=== PATIENT | male | born 2000 | race Caucasian/White ===

== ENCOUNTER 2021-12-10 09:40 | Emergency (ER) | payer BC, SELFPAY ==
[2021-12-10 10:16] VITALS: BP 141/98; PULSE 104; RESP 22; TEMP 36.4; O2SAT 97; BMI 57.8
[2021-12-10 10:30] VITALS: BP 141/87; PULSE 87; RESP 18; O2SAT 96
--- NOTE | 2021-12-10 10:36 | CRLHL7_ITS ---
For Patients: As a result of the Century Cures Act, medical imaging exams and procedure reports are released immediately into your electronic medical record. You may view this report before your referring provider. If you have questions, please contact your health care provider. indication: Right-sided chest pain and shortness of breath Technique: Volumetric multidetector CT images of the chest were obtained after the administration of IV contrast. 95 cc Isovue 370 low osmolar intravenous contrast Comparison: None available. Findings: The thoracic inlet and thyroid gland are unremarkable. The thoracic aorta is nonaneurysmal. Mildly limited evaluation of the pulmonary artery due to suboptimal contrast bolus timing with contrast predominantly in the aorta. No obvious central defect is appreciated. She has she. There is residual thymic tissue seen within the prevascular space. The trachea and bronchi are well aerated without significant bronchiectasis. There is minimal air trapping in dependent basilar atelectasis. There is no pneumothorax or pleural effusion. The partially visualized upper abdominal viscera are within normal limits. The thoracic vertebral body heights remain intact alignment without significant degenerative change or acute osseous abnormality. Impression: Somewhat limited evaluation of the pulmonary arteries due to suboptimal contrast bolus timing. No obvious central defect. Mild air-trapping and basilar atelectasis. Please note that all CT scans at this facility use dose modulation, iterative reconstruction, and/or weight-based dosing when appropriate to reduce radiation dose to as low as reasonably achievable. Dictated by Ken Cade MD @ 12/10/2021 12:36:12 PM (Electronically Signed)
--- NOTE | 2021-12-10 10:44 | ED.GENADULT ---
HPI - General Adult General Time Seen by Provider: 10:44 Date Seen: 12/10/21 Chief complaint: Chest Pain Stated complaint: Chest pain, short of breath Time Seen by Provider: 12/10/21 10:29 Source: patient Mode of arrival: ambulatory Limitations: no limitations History of Present Illness HPI narrative: The patient is a 21 year white male with obesity and anxiety/depression who is on escitalopram who presents with right-sided chest pain. He has had this on and off for the last 3 days worse since last night and fairly continuous since last night. At times he feels he can take a large breath just due to pain in his right side of his chest. No anterior chest pain that is in the midline no left-sided chest pain no radiation to his neck jaw or left arm. No history of pneumothorax. No history of COVID symptoms, cough, pneumonia. 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 Does not smoke. He has been starting to do some cardiovascular exercise to try and lose weight, but has not doing do been doing any weightlifting and does not feel he strain his chest in any way. He has no leg swelling edema, bleeding or clotting problems. Does have a positive family history for coronary artery disease with his dad a having [place] in his 50s. Related Data Home Medications Medication Instructions Recorded Confirmed escitalopram oxalate 20 mg tablet 20 mg PO DAILY 12/10/21 12/10/21 Allergies Allergy/AdvReac Type Severity Reaction Status Date / Time Antihistamines - Alkylamine Allergy Mild arrhythmia Verified 12/10/21 10:23 Review of Systems Status of ROS: Reports: 10 or more systems reviewed and unremarkable except as noted in History and below [facility] Medical History Atrial fibrillation Myocarditis Surgical History History of ankle surgery Social History Smoking Status: Never smoker Do you use any of these nicotine containing products: None How often do you have a drink containing alcohol: monthly or less How many standard drinks containing alcohol do you have on a typical day: 1 or 2 How often do you have six or more drinks on one occasion: Never AUDIT-C Alcohol total score: 1 Non-prescribed substance use: denies use service: No Exam Narrative: Exam Narrative: Objective: Patient has slightly elevated cyst colic and diastolic pressure his O2 sat is excellent at 97%. Patient has elevated BMI Very pleasant man, HEENT is unremarkable neck is supple Chest is clear Heart rhythm regular without murmur No palpable chest wall pain, no skin rashes on the right side of the chest were he is describing discomfort from his anterior axillary line down to his lower ribcage Abdomen obese benign nontender Extremities are no edema ,neurologic nonfocal, good peripheral perfusion Skin warm and dry Const: Vital Signs, click to edit/add: Vital Signs - 24 hr 12/10/21 10:16 12/10/21 10:30 12/10/21 11:10 Temperature 97.5 F L Pulse Rate [Right Pulse Oximeter] 104 H 87 18 L Respiratory Rate 22 18 18 Blood Pressure [Le ft Forearm] 141/98 H 141/87 H 117/81 Pulse Oximetry 97 96 97 12/10/21 11:30 12/10/21 12:00 12/10/21 13:00 Temperature Pulse Rate [Right Pulse Oximeter] 85 89 88 Respiratory Rate 18 20 24 Blood Pressure [Le ft Forearm] 117/61 129/77 100/54 L Pulse Oximetry 95 98 100 Course Course Hospital Course: Because of the patient's complaints and his family history I think ruling out a coronary issue, PE, pneumothorax, pulmonary infection would be appropriate patient will get CT scan of the chest laboratory studies electrolytes, IV fluid Vital Signs Vital signs: Initial Vital Signs Temperature 97.5 F L 12/10/21 10:16 Temperature Source Temporal Artery Scan 12/10/21 10:16 Pulse Rate 104 H 12/10/21 10:16 Pulse Rhythm 12/10/21 10:16 Respiratory Rate 22 12/10/21 10:16 Blood Pressure 141/98 H 12/10/21 10:16 Blood Pressure Mean 112 12/10/21 10:16 Blood Pressure Position Sitting 12/10/21 10:16 Pulse Oximetry 97 12/10/21 10:16 Oxygen Delivery Method 12/10/21 10:16 Vital Signs Temperature 97.5 F L 12/10/21 10:16 Pulse Rate 104 H 12/10/21 10:16 Respiratory Rate 22 12/10/21 10:16 Blood Pressure 141/98 H 12/10/21 10:16 Pulse Oximetry 97 12/10/21 10:16 Temperature 97.5 F L 12/10/21 10:16 Pulse Rate 88 12/10/21 13:00 Respiratory Rate 24 12/10/21 13:00 Blood Pressure 100/54 L 12/10/21 13:00 Pulse Oximetry 100 12/10/21 13:00 Medical Decision Making MDM Narrative Medical decision making narrative: The patient has an EKG that shows normal sinus rhythm by my read no acute ST T wave changes. His CT scan shows a less than optimal bolus and likely due to his size but there is no obvious pulmonary emboli or other intra pulmonary pathology, no pneumothorax, no infection. Patient's laboratory studies look reassuring with a negative troponin his, his D-dimer is at the upper limit of normal he was given aspirin 324 chewable his CBC looks unremarkable, his ER profile is unremarkable his AST and ALT are just minimally elevated. His COVID is still pending. I think he would benefit from some anti-inflammatory medications such as Aleve 2 twice a day for the next several days, Tylenol as needed, recheck with primary care in 48 hours certainly sooner changes or concerns. His will follow up as directed. Lab Data Labs: Lab Results 12/10/21 12/10/21 12/10/21 Range/Units 11:05 11:11 11:11 WBC 6.57 (4.50-11.00) K/uL RBC 5.65 (4.30-5.90) m/uL Hgb 16.5 (13.5-17.5) gm/dL Hct 46.9 (37.0-53.0) % MCV 83 (80-100) fL MCH 29 (26-34) pg MCHC 35 (32-36) gm/dL RDW Coeff of Holli 12.0 (11.5-15.5) % Plt Count 254 (140-440) K/uL Neut % (Auto) 64.2 (42.0-72.0) % Lymph % (Auto) 23.0 (20-44) % Mitchell % (Auto) 9.4 (0.0-11.0) % Eos % (Auto) 2.7 (0.0-7.0) % Baso % (Auto) 0.5 (0.0-3.0) % Neut # (Auto) 4.22 (1.7-7.0) K/uL Lymph # (Auto) 1.51 (0.90-2.90) K/uL Mitchell # (Auto) 0.60 (0.00-0.90) K/UL Eos # (Auto) 0.18 (0.00-0.50) K/uL Baso # (Auto) 0.03 (0.00-0.30) K/uL Abs Immat Gran (auto) 0.01 (0.00-0.30) K/uL D-Dimer Quant (PE/DVT) 0.51 H (0.00-0.50) ug/ml Sodium (135-149) mmol/L Potassium (3.6-5.1) mmol/L Chloride (96-114) mmol/L Carbon Dioxide (20-32) mmol/L BUN (5-24) mg/dL Creatinine (0.5-1.5) mg/dL Estimated Creat Clear Glucose (60-115) mg/dL Calcium (8.4-10.6) mg/dL Total Bilirubin (0.1-1.5) mg/dL Direct Bilirubin (0.0-0.5) mg/dL AST (12-35) U/L ALT (4-50) U/L Alkaline Phosphatase (40-150) U/L C-Reactive Protein (0.5-1.0) mg/dL Total Protein (6.0-8.3) g/dL Albumin (3.3-5.0) g/dL SARS-CoV-2 (PCR) Negative SARS-CoV-2 (Negative) POC Troponin I (0.01-0.04) ng/ml 12/10/21 12/10/21 Range/Units 11:11 11:35 WBC (4.50-11.00) K/uL RBC (4.30-5.90) m/uL Hgb (13.5-17.5) gm/dL Hct (37.0-53.0) % MCV (80-100) fL MCH (26-34) pg MCHC (32-36) gm/dL RDW Coeff of Holli (11.5-15.5) % Plt Count (140-440) K/uL Neut % (Auto) (42.0-72.0) % Lymph % (Auto) (20-44) % Mitchell % (Auto) (0.0-11.0) % Eos % (Auto) (0.0-7.0) % Baso % (Auto) (0.0-3.0) % Neut # (Auto) (1.7-7.0) K/uL Lymph # (Auto) (0.90-2.90) K/uL Mitchell # (Auto) (0.00-0.90) K/UL Eos # (Auto) (0.00-0.50) K/uL Baso # (Auto) (0.00-0.30) K/uL Abs Immat Gran (auto) (0.00-0.30) K/uL D-Dimer Quant (PE/DVT) (0.00-0.50) ug/ml Sodium 137 (135-149) mmol/L Potassium 4.2 (3.6-5.1) mmol/L Chloride 105 (96-114) mmol/L Carbon Dioxide 26 (20-32) mmol/L BUN 11 (5-24) mg/dL Creatinine 0.7 (0.5-1.5) mg/dL Estimated Creat Clear 192.45 Glucose 109 (60-115) mg/dL Calcium 9.6 (8.4-10.6) mg/dL Total Bilirubin 0.6 (0.1-1.5) mg/dL Direct Bilirubin 0.4 (0.0-0.5) mg/dL AST 42 H (12-35) U/L ALT 57 H (4-50) U/L Alkaline Phosphatase 101 (40-150) U/L C-Reactive Protein 0.8 (0.5-1.0) mg/dL Total Protein 7.8 (6.0-8.3) g/dL Albumin 4.6 (3.3-5.0) g/dL SARS-CoV-2 (PCR) (Negative) POC Troponin I 0.00 L (0.01-0.04) ng/ml Discharge Plan Discharge Clinical Impression: Acute chest wall pain Patient Disposition: Home, Self-Care Condition: Stable Additional Instructions: Light activity, 2 Aleve twice a day for the next 5 days, gentle range of motion, recheck with primary care in 48 hours certainly sooner changes or concerns return to the ED. Activity Level: Light activity Discharge Diet: Regular Prescriptions: No Action escitalopram oxalate 20 mg tablet 20 mg PO DAILY 0RF Follow Up/Referrals: Ricci Burnette MD [Primary Care Provider] - Stand Alone Forms: [employer] Info Instructions
[2021-12-10 11:10] VITALS: BP 117/81; PULSE 18; RESP 18; O2SAT 97
[2021-12-10 11:22] LABS: Basophils Absolute Auto 0.03 K/uL (0.00-0.30); Basophils Percent Auto 0.5 % (0.0-3.0); Eosinophils Absolute Auto 0.18 K/uL (0.00-0.50); Eosinophils Percent Auto 2.7 % (0.0-7.0); Hematocrit 46.9 % (37.0-53.0); Hemoglobin* 16.5 gm/dL (13.5-17.5); Immature Granulocytes Abs Auto 0.01 K/uL (0.00-0.30); Lymphocytes Absolute Auto 1.51 K/uL (0.90-2.90); Mean Corpuscular HGB Conc 35 gm/dL (32-36); Mean Corpuscular Hemoglobin 29 pg (26-34); Mean Corpuscular Volume 83 fL (80-100); Monocytes Percent Auto 9.4 % (0.0-11.0); Neutrophils Absolute Auto 4.22 K/uL (1.7-7.0); Neutrophils Percent Auto 64.2 % (42.0-72.0); Platelet Count* 254 K/uL (140-440); Red Blood Count 5.65 m/uL (4.30-5.90); White Blood Count* 6.57 K/uL (4.50-11.00)
[2021-12-10 11:30] VITALS: BP 117/61; PULSE 85; RESP 18; O2SAT 95
[2021-12-10 11:33] LABS: Slide Review Reflex No
[2021-12-10 11:34] LABS: Chloride* 105 mmol/L (96-114)
[2021-12-10 11:35] LABS: Albumin* 4.6 g/dL (3.3-5.0); Potassium* 4.2 mmol/L (3.6-5.1); Sodium* 137 mmol/L (135-149)
[2021-12-10 11:37] LABS: Carbon Dioxide* 26 mmol/L (20-32); Creatinine* 0.7 mg/dL (0.5-1.5); Est. Creatinine Clearance* 192.45; Estimated Glomerular Filt Rate 133.61
[2021-12-10 11:38] LABS: Alanine Aminotransferase* 57 U/L (4-50); Alkaline Phosphatase* 101 U/L (40-150); Aspartate Amino Transferase* 42 U/L (12-35); Bilirubin Direct* 0.4 mg/dL (0.0-0.5); Bilirubin Total* 0.6 mg/dL (0.1-1.5); Blood Urea Nitrogen* 11 mg/dL (5-24); Calcium* 9.6 mg/dL (8.4-10.6); D Dimer Quantitative* 0.51 ug/ml (0.00-0.50); Glucose* 109 mg/dL (60-115); Total Protein* 7.8 g/dL (6.0-8.3)
[2021-12-10 11:41] LABS: C Reactive Protein* 0.8 mg/dL (0.5-1.0)
--- NOTE | 2021-12-10 11:44 | ED.NURSE ---
Pt to imaging.
[2021-12-10 12:00] VITALS: BP 129/77; PULSE 89; RESP 20; O2SAT 98
[2021-12-10] MEDS: ASPIRIN 81 MG TAB.CHEW 324 MG PO (12:08)
[2021-12-10] MEDS: 0.9 % SODIUM CHLORIDE 500 ML 500 ML IV (12:08)
[2021-12-10 12:52] LABS: SARS PCR* Negative SARS-CoV-2 (Negative)
[2021-12-10 13:00] VITALS: BP 100/54; PULSE 88; RESP 24; O2SAT 100
== END 2021-12-10 13:29 | disposition home or self-care (01) ==
PROVIDERS: Emergency Provider Family Medicine; PCP Family Medicine
DX: R07.89 Other chest pain (principal); F41.9 Anxiety disorder, unspecified
CPT/HCPCS: 36415; 71260; 80048; 80076; 84484; 85025; 85379; 86140; 87635; 93005; 96360; 99284; 99285; A9270; J7120; Q9967

== ENCOUNTER 2022-11-16 08:32 | Outpatient (CLI) | payer BC, SELFPAY | END 2022-11-16 08:33 | disposition home or self-care (01) | PROVIDERS: PCP Family Medicine; Visit Provider Family Medicine | DX: Z00.00 Encounter for general adult medical examination without abnormal findings (principal); E66.01 Morbid (severe) obesity due to excess calories; R79.89 Other specified abnormal findings of blood chemistry; I10 Essential (primary) hypertension; I48.91 Unspecified atrial fibrillation; E78.5 Hyperlipidemia, unspecified; Z13.6 Encounter for screening for cardiovascular disorders | CPT/HCPCS: 80053; 80061; 84443 ==

== ENCOUNTER 2023-01-08 18:16 | Emergency (ER) | payer BC, SELFPAY ==
[2023-01-08 18:23] VITALS: BP 130/79; PULSE 109; RESP 22; TEMP 37.4; O2SAT 96; BMI 55.2
--- NOTE | 2023-01-08 18:44 | ED.GENADULT ---
HPI - General Adult General Chief complaint: Extremity Pain/Injury, Lower Stated complaint: Stepped on wade pin R foot Time Seen by Provider: 01/08/23 18:21 Source: patient Mode of arrival: ambulatory Limitations: no limitations History of Present Illness HPI narrative: 22-year-old male coming in today after suffering a puncture wound. Patient states that he was walking around outside in a dirt and grass the area when he felt a sharp discomfort in the center of the foot. He was wearing shoes at the time. When he looked down there was a push pin in his shoe, penetrating the sole into his foot. It was Removed right away and he came to the ER. Patient denies a history of diabetes, peripheral vascular disease. 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 - Influenza due to unidentified influenza virus with myocarditis (ICD-10) Hypertension ?I10 - Essential (primary) hypertension (ICD-10) Chest pain ?R07.9 - Chest pain, unspecified (ICD-10) Atrial fibrillation with rapid ventricular response ?I48.91 - Unspecified atrial fibrillation (ICD-10) Myocarditis ?I51.4 - Myocarditis, unspecified (ICD-10) Atrial fibrillation ?I48.91 - Unspecified atrial fibrillation (ICD-10) Surgical History History of ankle surgery ?Z98.890 - Other specified postprocedural states (ICD-10) Social History What is your current living situation?: I presently have a place to live Problems where you live: no known problems In the past 12 months, utilities in danger of being shut off: no In the past 12 mos, have been you worried that your food would run out before you had money to buy more?: never true In the past 12 mos, the food you bought just didn't last and you didn't have money to buy more?: never true Smoking Status: Never smoker Do you use any of these nicotine containing products: None Second hand tobacco smoke exposure: No How often do you have a drink containing alcohol: monthly or less How many standard drinks containing alcohol do you have on a typical day: 1 or 2 How often do you have six or more drinks on one occasion: Never AUDIT-C Alcohol total score: 1 Non-prescribed substance use: denies use How often does anyone, including family, friends and others, physically hurt you: How often does anyone, including family, friends and others, insult or talk down to you: How often does anyone, including family, friends and others, threaten you with harm: How often does anyone, including family, friends and others, scream or curse at you: Little interest or pleasure in doing things: not at all Feeling down, depressed, or hopeless: several days service: No Exam Narrative: Exam Narrative: Morbidly obese patient in no acute distress. Alert and oriented. Answers questions appropriately. Mood and affect are appropriate. Thoughts are goal oriented and rational. No tangential or magical thinking noted. Patient speaks in full sentences without needing to catch his breath. HEENT: Normocephalic atraumatic. Pupils are equally round reactive to light. Extraocular muscles are intact. Conjunctivae are moist without any icterus noted. Moist mucous membranes. Extremities: Bilateral lower extremities are without edema. Patient has a pinpoint puncture wound on the bottom of the right foot. No surrounding erythema or swelling. Skin: Well perfused without any obvious rashes. Const: Vital Signs, click to edit/add: Vital Signs - 24 hr 01/08/23 18:23 Temperature 99.4 F Pulse Rate [Pulse Oximeter] 109 H Respiratory Rate 22 Blood Pressure [Ri ght Forearm] 130/79 Pulse Oximetry 96 Oxygen Delivery Me thod Room Air Course Course Hospital Course: Foot and wound were washed. Vital Signs Vital signs: Initial Vital Signs Temperature 99.4 F 01/08/23 18:23 Temperature Source Temporal Artery Scan 01/08/23 18:23 Pulse Rate 109 H 08/11/23 18:23 Respiratory Rate 22 01/08/23 18:23 Blood Pressure 130/79 01/08/23 18:23 Blood Pressure Mean 96 01/08/23 18:23 Blood Pressure Position Sitting 01/08/23 18:23 Pulse Oximetry 96 01/08/23 18:23 Oxygen Delivery Method Room Air 01/08/23 18:23 Vital Signs Temperature 99.4 F 01/08/23 18:23 Pulse Rate 109 H 01/08/23 18:23 Respiratory Rate 22 01/08/23 18:23 Blood Pressure 130/79 01/08/23 18:23 Pulse Oximetry 96 01/08/23 18:23 Oxygen Delivery Method Room Air 01/08/23 18:23 Temperature 99.4 F 01/08/23 18:23 Pulse Rate 109 H 01/08/23 18:23 Respiratory Rate 22 01/08/23 18:23 Blood Pressure 130/79 01/08/23 18:23 Pulse Oximetry 96 01/08/23 18:23 Oxygen Delivery Method Room Air 01/08/23 18:23 Medical Decision Making MDM Narrative Medical decision making narrative: 22-year-old male with puncture wound to the bottom of the foot. We discussed that given lack of conditions that would result in increased risk of infection I do not recommend antibiotic therapy at this time. Tetanus shot is up-to-date. We discussed wound hygiene, signs symptoms of infection reasons for follow-up. Patient was in agreement and had no other questions. Discharge Plan Discharge Clinical Impression: Puncture wound Patient Disposition: Home, Self-Care Condition: Stable Additional Instructions: Monitor for signs of infection which include redness of the bottom of the foot, drainage from the wound or increasing pain. If this occurs return to the ER. Otherwise okay to keep foot clean and dry, activity as tolerated. Prescriptions: No Action ibuprofen 600 mg tablet 600 mg PO Q6H PRN (Reason: pain) Follow Up/Referrals: Ricci Burnette MD [Primary Care Provider] - Stand Alone Forms: [employer] Info Instructions
== END 2023-01-08 19:03 | disposition home or self-care (01) ==
LOC: ED 18:55
PROVIDERS: Emergency Provider Family Medicine; PCP Family Medicine
DX: S91.331A Puncture wound without foreign body, right foot, initial encounter (principal)
CPT/HCPCS: 99283

== ENCOUNTER 2024-01-24 00:55 | Emergency (ER) | payer BC, SELFPAY ==
[2024-01-24 01:02] VITALS: BP 136/84; PULSE 144; RESP 18; TEMP 36.6; O2SAT 98; BMI 56.5
[2024-01-24] MEDS: 0.9 % SODIUM CHLORIDE 1000 ml 1,000 ML IV (02:16)
[2024-01-24 02:17] LABS: Chloride* 109 mmol/L (96-114); Sodium* 138 mmol/L (135-149)
[2024-01-24] MEDS: dilTIAZem 5 MG/ML inj 20 MG IVP (02:17)
[2024-01-24 02:19] LABS: Creatinine* 0.7 mg/dL (0.5-1.5); Est. Creatinine Clearance* 189.19; Estimated Glomerular Filt Rate 132 ml/min
[2024-01-24 02:20] LABS: Anion Gap 7 mEq/L (7-15); Blood Urea Nitrogen* 13 mg/dL (5-24); Calcium* 9.4 mg/dL (8.4-10.6); Carbon Dioxide* 22 mmol/L (20-32); Glucose* 91 mg/dL (60-115)
[2024-01-24 02:22] LABS: Basophils Absolute Auto 0.05 K/uL (0.00-0.30); Basophils Percent Auto 0.7 % (0.0-3.0); Eosinophils Absolute Auto 0.26 K/uL (0.00-0.50); Eosinophils Percent Auto 3.9 % (0.0-7.0); Hematocrit 46.3 % (37.0-53.0); Hemoglobin* 15.7 gm/dL (13.5-17.5); Immature Granulocytes Abs Auto 0.01 K/uL (0.00-0.30); Immature Granulocytes Pct Auto 0.1 %; Lymphocytes Absolute Auto 2.18 K/uL (0.90-2.90); Lymphocytes Percent Auto 32.6 % (20-44); Mean Corpuscular HGB Conc 34 gm/dL (32-36); Mean Corpuscular Hemoglobin 28 pg (26-34); Mean Corpuscular Volume 83 fL (80-100); Monocytes Percent Auto 8.7 % (0.0-11.0); Platelet Count* 228 K/uL (140-440); RDW Coefficient of Variation % 12.2 % (11.5-15.5); Red Blood Count 5.57 m/uL (4.30-5.90); White Blood Count* 6.68 K/uL (4.50-11.00)
[2024-01-24 02:25] LABS: Slide Review Reflex No
--- NOTE | 2024-01-24 02:36 | ED_ITS ---
HPI - General Adult General Date Seen: 01/24/24 Chief complaint: Arrhythmia/Palpitations Stated complaint: heart arrhythmia Time Seen by Provider: 01/24/24 00:56 Source: patient Mode of arrival: ambulatory Limitations: no limitations History of Present Illness HPI narrative: Patient is a 23-year-old who presents for evaluation of palpitations which he says he says woke him from sleep at around 12:30 p.m.. He does have a history of prior atrial fibrillation, has been cardioverted two or 3 times. His only symptom is a sensation of palpitations in his throat. He does not have chest pain, difficulty breathing, lightheadedness or fainting. He denies recent illness, does have a prior history of COVID and myocarditis. He does not smoke, denies any substance use. Does have a cup of caffeinated coffee in the mornings, denies energy drinks, stimulants or any alcohol use. Related Data Home Medications ?Medication ?Instructions ?Recorded ?Confirmed ibuprofen 600 mg tablet 600 mg PO Q6H PRN pain 11/16/22 03/29/23 Previous Rx's ?Medication ?Instructions ?Recorded nirmatrelvir 300 mg (150 mg 3 ea (3 x 300 mg (150 mg x 2)-100 03/29/23 x2)-ritonavir 100 mg tablet,dose mg) PO QAM AND QPM #30 tabs pack (Paxlovid) apixaban 5 mg tablet (Eliquis) 5 mg PO BID #60 tabs 01/24/24 Allergies Allergy/AdvReac Type Severity Reaction Status Date / Time fexofenadine Allergy Severe A-FIB Verified 03/29/23 12:58 Antihistamines - Alkylamine Allergy Mild arrhythmia Verified 03/29/23 12:58 loratadine Allergy Unknown Verified 03/29/23 12:58 Review of Systems Status of ROS: Reports: 10 or more systems reviewed and unremarkable except as noted in History and below [facility] Medical History 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 - Influenza due to unidentified influenza virus with myocarditis (ICD-10) Hypertension ?I10 - Essential (primary) hypertension (ICD-10) Chest pain ?R07.9 - Chest pain, unspecified (ICD-10) Atrial fibrillation with rapid ventricular response ?I48.91 - Unspecified atrial fibrillation (ICD-10) Myocarditis ?I51.4 - Myocarditis, unspecified (ICD-10) Atrial fibrillation ?I48.91 - Unspecified atrial fibrillation (ICD-10) Surgical History History of ankle surgery ?Z98.890 - Other specified postprocedural states (ICD-10) Social History What is your current living situation?: I presently have a place to live Problems where you live: no known problems In the past 12 months, utilities in danger of being shut off: no In the past 12 mos, have been you worried that your food would run out before you had money to buy more?: never true In the past 12 mos, the food you bought just didn't last and you didn't have money to buy more?: never true Smoking Status: Never smoker Do you use any of these nicotine containing products: None Second hand tobacco smoke exposure: No How often do you have a drink containing alcohol: monthly or less How many standard drinks containing alcohol do you have on a typical day: 1 or 2 How often do you have six or more drinks on one occasion: Never AUDIT-C Alcohol total score: 1 Non-prescribed substance use: denies use How often does anyone, including family, friends and others, physically hurt you : How often does anyone, including family, friends and others, insult or talk down to you: How often does anyone, including family, friends and others, threaten you with harm: How often does anyone, including family, friends and others, scream or curse at you: Little interest or pleasure in doing things: not at all Feeling down, depressed, or hopeless: several days service: No Exam Narrative: Exam Narrative: Vital signs as noted above. In general, an alert, well-appearing patient. Breathing easily. Head: Normocephalic, atraumatic. Eyes: Pupils are equal reactive. Extraocular movements are full. Conjunctivae are normal. ENT: Mucous membranes are moist. Throat is normal. Neck: Supple without lymphadenopathy. Heart: Irregularly irregular, tachycardic. No significant murmur. Lungs: Clear bilaterally. No increased work of breathing, crackles or wheezes. Abdomen: Soft and nontender. No organomegaly. Extremities: Well perfused. No edema. No calf tenderness. Pulses intact. Neurologic: Patient is alert and oriented to person and place. Speech is fluent. Face is symmetric. Moves all extremities equally. Affect: Normal. Skin: Warm and dry. Well perfused. Const: Vital Signs, click to edit/add: Vital Signs - 24 hr 01/24/24 01:02 01/24/24 04:42 01/24/24 05:35 Temperature 97.8 F Pulse Rate [Pulse Oximeter] 144 H 128 H Respiratory Rate 18 16 Blood Pressure [Ri ght Forearm] 136/84 114/85 Pulse Oximetry 98 98 98 Oxygen Delivery Me thod Room Air Nasal Cannula Oxygen Flow Rate 2 01/24/24 05:37 Temperature 98.0 F Pulse Rate [Pulse Oximeter] 80 Respiratory Rate 16 Blood Pressure [Ri ght Forearm] 122/78 Pulse Oximetry 98 Oxygen Delivery Me thod Room Air Oxygen Flow Rate 2 Documenting provider has reviewed patient's vital signs: yes Course Course ED Course: Patient arrived to the ER at around 1:00 a.m.. He had an EKG which showed atrial fibrillation with a rapid ventricular response of 135 beats per minute. No acute ST segment changes, T-waves are unremarkable. We established an IV, he was maintained on the monitor, labs were checked including a CBC which shows a normal white blood cell count of 6.7, hemoglobin of 15.7, electrolytes are normal, TSH was mildly elevated at 6.6 free T4 is pending. Given the time of day, immediate cardioversion was not an option. We did give him some normal saline as well as diltiazem 20 mg to try and achieve some rate control. Assuming he does not convert spontaneously, plan will be for cardioversion when he has been adequately NPO for me to have anesthesia provide sedation, roughly 5:00 a.m.. Patient was comfortable while here, did not have significant response to diltiazem, pulse was somewhat improved to 120s, blood pressure is stable. He did remain in atrial fibrillation and ultimately we recommended cardioversion. Consent was obtained, risks and benefits including failure to convert, other arrhythmias, over-sedation, need for airway management, aspiration, discussed. Questions answered and he agreed to proceed. Procedure note: ARTIFICIAL SNOW MAKING MACHINE OPERATOR provided anesthesia, please see her note for details. He tolerated anesthesia well. He was cardioverted at 200 joules, synchronized, with successful cardioversion to sinus rhythm. A repeat EKG shows a sinus rhythm, ventricular rate of 81 beats per minute. QT of 427 milliseconds, normal CT, unremarkable T-waves. He wakened without difficulty or complaints. Labs notable for a normal white blood cell count and hemoglobin, electrolytes show sodium of 138, potassium of 4, magnesium of 2.1. TSH was elevated at 6.6 but free T4 was normal. Troponin was 0. He stable for discharge at this time. Did recommend a short course of anticoagulation, this was prescribed. Primary care follow-up in the next couple weeks. Return at any time for recurrent or worsening symptoms. Vital Signs Vital signs: Initial Vital Signs Temperature 97.8 F 01/24/24 01:02 Temperature Source Temporal Artery Scan 01/24/24 01:02 Pulse Rate 144 H 01/24/24 01:02 Respiratory Rate 18 01/24/24 01:02 Blood Pressure 136/84 01/24/24 01:02 Blood Pressure Mean 101 01/24/24 01:02 Blood Pressure Position Supine 01/24/24 01:02 Pulse Oximetry 98 01/24/24 01:02 Oxygen Delivery Method Room Air 01/24/24 01:02 Vital Signs Temperature 97.8 F 01/24/24 01:02 Pulse Rate 144 H 01/24/24 01:02 Respiratory Rate 18 01/24/24 01:02 Blood Pressure 136/84 01/24/24 01:02 Pulse Oximetry 98 01/24/24 01:02 Oxygen Delivery Method Room Air 01/24/24 01:02 Temperature 98.0 F 01/24/24 05:37 Pulse Rate 80 01/24/24 05:37 Respiratory Rate 16 01/24/24 05:37 Blood Pressure 122/78 01/24/24 05:37 Pulse Oximetry 98 01/24/24 05:37 Oxygen Delivery Method Room Air 01/24/24 05:37 Oxygen Flow Rate 2 01/24/24 05:37 Medications Administered Medications: Discontinued Medications Generic Name Dose Route Start Last Admin Trade Name Freq PRN Reason Stop Dose Admin Diltiazem HCl 20 mg 01/24/24 01:20 01/24/24 02:17 Diltiazem 5 Mg/Ml Inj IVP 01/24/24 01:21 20 mg ONCE ONE Administration Sodium Chloride 1,000 mls @ 1,000 mls/hr 01/24/24 01:30 01/24/24 02:16 0.9 % Sodium Chloride 1000 Ml IV 01/24/24 02:29 1,000 mls/hr .Q1H SYLWIA Administration Medical Decision Making Lab Data Labs: Lab Results 01/24/24 01/24/24 Range/Units 01:20 01:53 WBC 6.68 (4.50-11.00) K/uL RBC 5.57 (4.30-5.90) m/uL Hgb 15.7 (13.5-17.5) gm/dL Hct 46.3 (37.0-53.0) % MCV 83 (80-100) fL MCH 28 (26-34) pg MCHC 34 (32-36) gm/dL RDW Coeff of Holli 12.2 (11.5-15.5) % Plt Count 228 (140-440) K/uL Neut % (Auto) 54.0 (42.0-72.0) % Lymph % (Auto) 32.6 (20-44) % [place] % (Auto) 8.7 (0.0-11.0) % Eos % (Auto) 3.9 (0.0-7.0) % Baso % (Auto) 0.7 (0.0-3.0) % Neut # (Auto) 3.60 (1.7-7.0) K/uL Lymph # (Auto) 2.18 (0.90-2.90) K/uL [place] # (Auto) 0.60 (0.00-0.90) K/UL Eos # (Auto) 0.26 (0.00-0.50) K/uL Baso # (Auto) 0.05 (0.00-0.30) K/uL Abs Immat Gran (auto) 0.01 (0.00-0.30) K/uL Imm/Tot Granulo (auto) 0.1 % Sodium 138 (135-149) mmol/L Potassium 4.0 (3.6-5.1) mmol/L Chloride 109 (96-114) mmol/L Carbon Dioxide 22 (20-32) mmol/L Anion Gap 7 (7-15) mEq/L BUN 13 (5-24) mg/dL Creatinine 0.7 (0.5-1.5) mg/dL Estimated Creat Clear 189.19 Estimated GFR 132 ml/min Glucose 91 (60-115) mg/dL Calcium 9.4 (8.4-10.6) mg/dL Magnesium 2.1 (1.5-2.6) mg/dL TSH 6.590 H (0.270-4.200) uIU/mL Free T4 1.46 (0.70-1.85) ng/dL Discharge Plan Discharge Clinical Impression: Atrial fibrillation with rapid ventricular response Patient Disposition: Home, Self-Care Condition: Improved Instructions: A-fib (Atrial Fibrillation) (ED), Blood Thinners (ED) Additional Instructions: Please follow-up in clinic in the next 1-2 weeks. Blood thinner as prescribed. For recurrent or new worsening symptoms return to the ER at any time. During the time your taking the blood thinner, you should not take ibuprofen, aspirin, Aleve, or similar medications. Tylenol is okay. Prescriptions: New Eliquis 5 mg tablet 5 mg PO BID Qty: 60 2RF No Action ibuprofen 600 mg tablet 600 mg PO Q6H PRN (Reason: pain) Paxlovid 300 mg (150 mg x 2)-100 mg tablets,dose pack 3 ea PO QAM AND QPM Qty: 30 0RF Follow Up/Referrals: Ricci Burnette MD [Primary Care Provider] - Stand Alone Forms: [facility] Info Instructions
[2024-01-24 03:30] LABS: Free T4 Free Thyroxine* 1.46 ng/dL (0.70-1.85)
[2024-01-24 03:39] LABS: Magnesium* 2.1 mg/dL (1.5-2.6)
--- OUTSIDE RECORDS SUMMARY | 2024-01-24 03:49 | XMS_ITS | Clinical Summary ---
Author Organization [facility] Address [address], [place] [address] Care Team Providers Care Hemp Fiber Taker Off Name Role Phone Needs Pcp, Assignment Primary Care Provider [phone] Source Comments You are receiving this document as you are listed as the primary care provider,follow-up provider, or the patient has been referred to you for consultation.This is in compliance with the Medicare andMedicaid EHR Incentive Program,which states Providers who transition their patient to another setting of careor provider of care or refers their patient to another provider of care shouldprovide summary care record for each transition of care or referral. [email or web address] Allergies Active Allergy Reactions Criticality Noted Date Comments Antihistamines, Loratadine-Type Anaphylaxis,Arrhythmi a,Other, see comments,Palpitations High 08/02/2002 (Claritin) Racing heart. (Claritin) Racing heart. (Claritin) Racing heart. PN: heart races (Claritin) Racing heart. (Claritin) Racing heart. Arrhythmia, Required Defib, Diphenhydramine Palpitations High 11/27/2020 Racing Heart Loratadine Palpitations 08/02/2002 PN: heart races (Claritin) Racing heart. (Claritin) Racing heart. Other 06/21/2018 SEASONAL Medications Medication Sig Dispensed Refills Start Date End Date Status escitalopram oxalate (LEXAPRO) 20 MG tablet Take 20 mg by mouth daily. 06/17/2020 Active fluticasone propionate (FLONASE) 50 MCG/ACT nasal solution Place 2 Sprays into both nostrils daily. 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 Hospital[facility] at [facility] Followed by [facility] (Dr. Galarza). ; History of myocarditis Obesity due to excess calories 02/11/2016 Seasonal allergies 2016 Routine or child health check 08/25/2010 Overview (01/20/2017): Well Cable Armorer Operator Multisystem Exam 0-17yr Resolved Problems Problem Noted Date Diagnosed Date Resolved Date Concussion without loss of consciousness 02/25/2015 04/24/2015 Asthma 07/08/2010 07/27/2017 Overview (01/20/2017): Asthma NOS Immunizations Name Administration Dates Next Due DTaP 04/04/2004, 0,1999,1998 DTaP/Hib 04/30/2000 Flu Vac Preserv Free (3+yrs) 03/15/2012, 02/18/2009,04/03/2008,2006 HepA Ped/Adol (1-18 yrs) 05/28/2011,08/25/2010 HepB Adult (Engerix-B, 20+ y rs, 3 dose series) 04/30/2000,1999,1999 Hib (ActHIB) 1999,1999,1999 IPV (Polio) 04/04/2004, 0,1999,1998 Influenza, Unspecified Formulation 04/25/2003 MCV4 (Menactra) 08/25/2010 MMR 04/04/2004,04/30/2000 TDAP (ADACEL) 08/25/2010 Varicella 08/25/2010,04/30/2000 Family History Medical History Relation Name Comments Amblyopia/Strabismus Father Diabetes Father Diabetes Mother Cataract Maternal Grandfather Diabetes Maternal Grandfather Diabetes Paternal Grandfather Heart Disease Paternal Grandfather Diabetes Paternal Grandmother Blindness Negative Family History Glaucoma Negative Family History Macular Degeneration Negative Family History Retinal Detachment Negative Family History Relation Name Status Comments Father Mother Maternal Grandfather Paternal Grandfather Paternal Grandmother Social History Tobacco Use Types Packs/Day Years Used Date Smoking Tobacco: Never Smokeless Tobacco: Never Alcohol Use Standard Drinks/Week Comments No 0 (1 standard drink = 0.6 oz pur e alcohol) Sex and Gender Information Value Date Recorded Sex Assigned at Not on file Gender Identity Not on file Sexual Orientation Not on file Last Filed Vital Signs Vital Sign Reading Time Taken Comments Blood Pressure 140/90 02/19/2022 1:03 PM CDT Pulse 89 02/19/2022 1:03 PM CDT Temperature 36.8 ??C (98.2 ??F) 06/21/2018 4:57 PM CS T Respiratory Rate 18 07/27/2017 2:52 PM POWER SUPERINTENDENT Oxygen Saturation 98% 02/19/2022 1:03 PM CDT Inhaled Oxygen Concentration - - Weight 172.4 kg (380 lb) 02/19/2022 1:03 PM CDT Height 188 cm (6' 2) 02/19/2022 1:03 PM CDT Body Mass Index 48.79 02/19/2022 1:03 PM CDT Plan of Treatment Health Maintenance Due Date Last Done Comments Hep C Screening (Preventive Services) 1999 HIV Screening (Preventive Services) 2015 Adult Preventive Visit 2017 HPV Vaccine (3 - Male 3-dose series) 11/25/2021 09/02/2021, 05/03/2019 COVID-19 Vaccine ( season) 2023 04/30/2021, 09/10/2020, 08/20/2020 Influenza (#1) 2024 03/09/2020, 03/01, 03/12/2018, Additional history exists DTaP/Tdap/Td (8 - Tdap) 11/27/2029 11/28/19 20, 08/25/2010, 04/04/2004, Additional history exists Zoster/Shingles (1 of 2) 2049 HepB Completed 04/30/2000, 10/31, 1999 Hib Completed 04/30/2000, 05/1999, 1999, Additional history exists IPV (Polio) Completed 04/04/2004, 10/31, 1999, Additional history exists MCV4 Aged Out 08/25/2010 No longer eligi ble based on patient's age to complete this topic Varicella Completed 08/25/2010, 04/30/2000 HepA Completed 05/28/2011, 08/25/2010 Pneumococcal Aged Out No longer eligi ble based on patient's age to complete this topic Care Teams Hemp Fiber Taker Off Relationship Specialty Start Date End Date Needs Pcp, [place] [address] PCP - General 09/09/16
--- OUTSIDE RECORDS SUMMARY | 2024-01-24 03:49 | XMS_ITS | Clinical Summary ---
Author Organization [facility] Address [address] [place] [id number] Care Team Providers Care Data Entry Coordinator Name Role Phone Clinic, [facility] Primary Care Provider Allergies Active Allergy Reactions Criticality Noted Date Comments Antihistamines, Loratadine-Type Other (See Comments) High 11/21/2020 Arrhythmia, Required Defib, Diphenhydramine Palpitations High 11/27/2020 Racing Heart Loratadine Anaphylaxis High 10/01/2008 (Claritin) Racing heart. Loratadine Palpitations High 08/02/2002 (Claritin) Racing heart. PN: heart races (Claritin) Racing heart. (Claritin) Racing heart. Medications Medication Sig Dispensed Refills Start Date End Date Status oxyCODONE (ROXICODONE) 5 MG tablet Take 1 tablet (5 mg) by mouth every 6 hours as needed for pain No driving or operating heavy machinery while taking this medication. You may take a stool softener with this medication as it may cause constipation. 8 tablet 11/21/2020 Active escitalopram (LEXAPRO) 20 MG tablet Take 20 mg by mouth daily Active acetaminophen (TYLENOL) 500 MG tablet Take 500-1,000 mg by mouth every 6 hours as needed for mild pain Active ibuprofen (ADVIL/MOTRIN) 600 MG tabletIndications: Closed fracture of right ankle, initial encounter Take 1 tablet (600 mg) by mouth every 6 hours as needed for other (mild and/or inflammatory pain) 30 tablet 11/27/2020 Active acetaminophen (TYLENOL) 325 MG tabletIndications: Closed fracture of right ankle, initial encounter Take 2 tablets (650 mg) by mouth every 4 hours as needed for mild pain 50 tablet 11/27/2020 Active senna-docusate (SENOKOT-S/PERICOL ASHLY) 8.6-50 MG tabletIndications: Closed fracture of right ankle, initial encounter Take 1-2 tablets by mouth 2 times daily 30 tablet 11/27/2020 Active ondansetron (ZOFRAN-ODT) 4 MG ODT tabIndications:Priscila sed fracture of right ankle, initial encounter Take 1-2 tablets (4-8 mg) by mouth every 8 hours as needed for nausea 4 tablet 11/27/2020 Active aspirin (ASA) 81 MG EC tabletIndications: Closed fracture of right ankle, initial encounter Take 1 tablet (81 mg) by mouth 2 times daily (with meals) 28 tablet 11/27/2020 Active hydrOXYzine (ATARAX) 25 MG tabletIndications: Closed fracture of right ankle, initial encounter Take 1 tablet (25 mg) by mouth 3 times daily as needed (muscle spasms and breakthrough pain) 40 tablet 11/27/2020 Active Active Problems Problem Noted Date Diagnosed Date Obesity 01/20/2016 Immunizations Name Administration Dates Next Due COVID-19 MONOVALENT 12+ (Pfizer) 09/10/2020,07/30 DTAP (<7y) 04/04/2004, 0,1999,1999 ,1999 HEPA 05/28/2011,08/25/2010 HIB (PRP-T) 04/30/2000,1999,1999 ,1999 HepB 04/30/2000,1999,1999 MMR 04/04/2004,04/30/2000 Meningococcal (Menomune??) 08/25/2010 Poliovirus, inactivated (IPV) 04/04/2004, 000,1999,1999 TDAP (Adacel,Boostrix) 08/25/2010 Varicella 08/25/2010,04/30/2000 Family History Medical History Relation Comments Diabetes Father Diabetes Maternal Grandfather Eye Disorder Maternal Grandfather Cataracts Asthma Mother Heart Disease Paternal Grandfather Diabetes Paternal Grandmother Relation Status Comments Father Maternal Grandfather Mother Paternal Grandfather Paternal Grandmother Social History Tobacco Use Types Packs/Day Years Used Date Smoking Tobacco: Never Smokeless Tobacco: Never Alcohol Use Standard Drinks/Week Comments No 0 (1 standard drink = 0.6 oz pur e alcohol) Adolescent Education Answer Date Record ed Getting School Help Needed Not on file 03/15 Sex and Gender Information Value Date Recorded Sex Assigned at Not on file Gender Identity Not on file Sexual Orientation Not on file Last Filed Vital Signs Vital Sign Reading Time Taken Comments Blood Pressure 152/90 11/27/2020 7:30 PM CDT Pulse 93 11/27/2020 6:15 PM CDT Temperature 36.1 ??C (96.9 ??F) 11/27/2020 7:00 PM CD T Respiratory Rate 18 11/27/2020 7:30 PM CDT Oxygen Saturation 94% 11/27/2020 7:30 PM CDT Inhaled Oxygen Concentration - - Weight 190 kg (418 lb 14 oz) 11/27/2020 1:32 PM CDT Height 188 cm (6' 2) 11/21/2020 1:18 PM CDT Body Mass Index 53.78 11/21/2020 1:18 PM CDT Plan of Treatment Health Maintenance Due Date Last Done Comments ADVANCE CARE PLANNING 1999 ANNUAL REVIEW OF HM ORDERS 1999 YEARLY PREVENTIVE VISIT 1999 HIV SCREENING 2014 HEPATITIS C SCREENING 2017 HPV IMMUNIZATION (2 - Male 3-dose series) 05/31/2019 05/03/2019 COVID-19 Vaccine (3 - season) 2023 09/10/2020, 08/20/2020 PHQ-2 (once per calendar year) 2023 INFLUENZA VACCINE (#1) 2024 8, 03/21/2017, 03/15/2012, Additional history exists DTAP/TDAP/TD IMMUNIZATION (8 - Td or Tdap) 11/27/2029 11/28/2019, 08/25/2010, 04/04/2004, Additional history exists HEPATITIS B IMMUNIZATION Completed 000, 04/30/2000, 1999, Additional history exists IPV IMMUNIZATION Completed 04/04/2004, , 1999, Additional history exists MENINGITIS IMMUNIZATION Aged Out 08/25/2010, 08/25 No longer eligible based on patient's age to complete this topic Pneumococcal Vaccine: Pediatrics (0 to 5 Years) and At-Risk Patients (6 to 64 Years) Aged Out No longer eligible based on patient's age to complete this topic RSV MONOCLONAL ANTIBODY Aged Out No l onger eligible based on patient's age to complete this topic Medical Devices Implanted Type Area Tanning Solution Maker Device Identifier Shelf Expiration Date Model / Serial / Lot Imp Scr Arthrex Non-Locking Canc Vahe 2.7x20mm Ar-8827-20 - [id number] Implanted:Qty: 1 on 11/27/2020 by Tan Myers MD at [facility] Metallic Hardware/Anc hor Right: Ankle ARTHREX AR-8827-2 [id number] Imp Scr Arthrex Non-Locking Canc Vahe 2.7x24mm Ar-8827-24 - [id number] Implanted:Qty: 1 on 11/27/2020 by Tan Myers MD at [facility] Metallic Hardware/Anc hor Right: Ankle ARTHREX AR-8827-2 [id number] Locking Third Tubular Plate 8 Holes Implanted:Qty: 1 on 11/27/2020 by Tan Myers MD at [facility] Right: Ankle ARTHREX [id number]- [id number] 4mm Cancellous Fully Threaded 16mm Implanted:Qty: 2 on 11/27/2020 by Tan Myers MD at [facility] Right: Ankle ARTHREX AR-8840-1 [id number] 4mm Cancellous Fully Threaded 18mm Implanted:Qty: 1 on 11/27/2020 by Tan Myers MD at [facility] Right: Ankle ARTHREX AR-8840-1 [id number] 3.5mm Cortical Screw 16mm Implanted:Qty: 2 on 11/27/2020 by Tan Myers MD at [facility] Right: Ankle ARTHREX AR-8835-1 [id number] 3.5mm Cortical Screw 20mm Implanted:Qty: 1 on 11/27/2020 by Tan Myers MD at [facility] Right: Ankle ARTHREX AR-8835-2 [id number] Care Teams Data Entry Coordinator Relationship Specialty Start Date End Date [facility], [address] [address] PCP - General 11/21/20
--- OUTSIDE RECORDS SUMMARY | 2024-01-24 03:50 | XMS_ITS | Referral Summary ---
Author Organization [place] Address [address] [place] [address] Care Team Providers Care Flexible Nanny Name Role Phone Clinic, [facility] Primary Care Provider Allergies Active Allergy [...] 04/04/2004, [phone] TDAP (Adacel,Boostrix) 08/25/2010 Varicella 08/25/2010,04/30/2000 Social History Tobacco Use Types Packs/Day Years [...] 11/21/2020 1:18 PM CDT Plan of Treatment Not on file Medical Devices Implanted Type Area Camera Operator Device Identifier Shelf Expiration Date Model / Serial / Lot Imp Scr Arthrex Non-Locking Canc Vahe 2.7x20mm Ar-8827-20 - [id number] Implanted:Qty: 1 on 11/27/2020 by Tan Myers MD at [facility] Metallic Hardware/Anc hor Right: Ankle ARTHREX AR-8827-2 [id number] Imp Scr Arthrex Non-Locking Canc Vahe 2.7x24mm Ar-8827-24 - [id number] Implanted:Qty: 1 on 11/27/2020 by Tan Myers MD at [facility] Metallic Hardware/Anc hor Right: Ankle ARTHREX AR-8827-2 [id number] Locking Third Tubular Plate 8 Holes Implanted:Qty: 1 on 11/27/2020 by Tan Myers MD at [facility] Right: Ankle ARTHREX [id number]- [id number] 4mm Cancellous Fully Threaded 16mm Implanted:Qty: 2 on 11/27/2020 by Tan Myers MD at [facility] Right: Ankle ARTHREX AR-8840-1 [id number] 4mm Cancellous Fully Threaded 18mm Implanted:Qty: 1 on 11/27/2020 by Tan Myers MD at [facility] Right: Ankle ARTHREX AR-8840-1 [id number] 3.5mm Cortical Screw 16mm Implanted:Qty: 2 on 11/27/2020 by Tan Myers MD at [facility] Right: Ankle ARTHREX AR-8835-1 [id number] 3.5mm Cortical Screw 20mm Implanted:Qty: 1 on 11/27/2020 by Tan Myers MD at [facility] Right: Ankle ARTHREX AR-8835-2 [id number] Care Teams Flexible Nanny Relationship Specialty Start Date End Date [facility] [address] [address] PCP - General 11/21/20
--- OUTSIDE RECORDS SUMMARY | 2024-01-24 03:50 | XMS_ITS | Clinical Summary ---
Author Organization [facility] Address [place], [place] [address] Care Team Providers Care Electron Gun Assembler Name Role Phone Pcp, No Primary Care Provider Unavailabl e Allergies Active Allergy Reactions Criticality Noted Date Comments Diphenhydramine Palpitations High 11/27/2020 Racing Heart Fexofenadine Arrhythmia 11/18/2020 Loratadine Palpitations 10/01/2008 (Claritin) Racing heart. Medications Medication Sig Dispensed Refills Start Date End Date Status escitalopram oxalate (LEXAPRO) 20 mg tablet Take 20 mg by mouth once daily. 06/17/2020 Active triamcinolone, 55 mcg each actuation, nasal (NASACORT AQ) 55 mcg nasal sprayIndications:Hay fever Inhale 2 Sprays to both nostrils once daily. 1 Inhaler 11 11/18/2020 Active montelukast (SINGULAIR) 10 mg tabletIndications:Zaragoza y fever Take 1 Tablet (10 mg) by mouth once daily. 30 Tablet 5 11/18/2020 Active acetaminophen (TYLENOL EXTRA STRGTH) 500 mg tablet Take 500-1,000 mg by mouth. Active Active Problems No known active problems Social History Tobacco Use Types Packs/Day Years Used Date Smoking Tobacco: Never Smokeless Tobacco: Never Tobacco Cessation:Counseling Given: Yes Alcohol Use Standard Drinks/Week Comments Never 0 (1 standard drink = 0.6 oz pur e alcohol) Social Connections Answer Date Recorded Frequency of Communication with Friends and Fami ly Not on file 05/31/2021 Financial Resource Strain Answer Date R ecorded Difficulty of Paying Living Expenses Not on file 05/31/2021 Difficulty of Paying Living Expenses Not on file 05/31/2021 Sex and Gender Information Value Date Recorded Sex Assigned at Not on file Gender Identity Not on file Sexual Orientation Not on file Obstetrics History Last Filed Vital Signs Vital Sign Reading Time Taken Comments Blood Pressure 144/88 03/07/2023 1:46 PM CDT Pulse 95 03/07/2023 2:08 PM CDT Temperature 36.6 ??C (97.9 ??F) 03/07/2023 1:12 PM CD T Respiratory Rate 14 03/07/2023 1:12 PM CDT Oxygen Saturation 98% 03/07/2023 1:12 PM CDT Inhaled Oxygen Concentration - - Weight 216.8 kg (478 lb) 03/07/2023 1:12 PM CDT Height 188 cm (6' 2) 04/12/2019 8:14 PM PLATEN BUILDER UP Body Mass Index - - Plan of Treatment Health Maintenance Due Date Last Done Comments Tdap 2010 HIV for age 15-65 2014 HPV series for age 9-26 (1 - Male 3-dose series) 2014 BMI (ht and wt on same day) for age 18+ 2017 Hepatitis C screening for age 18-79 2017 Depression screening for age 12+ 07/27/2017 07/27/2016 Tetanus booster 2019 COVID-19 vaccine series (2022-24 season) 2023 05/12/2022, 04/30/2021, 09/10/2020, Additional history exists Influenza for age 9-49 01/30/2024 Pneumococcal series for age 6-64 Aged Out No longer eligible based on patient's age to complete this topic Care Teams Electron Gun Assembler Relationship Specialty Start Date End Date Pcp, No . PCP - General 04/12/19
--- OUTSIDE RECORDS SUMMARY | 2024-01-24 03:50 | XMS_ITS | Encounter Summary ---
Author Organization [place] Address [address] [place] [address] Care Team Providers Care Ur Coordinator Name Role Phone No Ref-Primary, Physician Primary Care Provider [facility] Primary Care Provider Encounter Details Date Type Department Care Team (Late st Contact Info) Description 09/11/2020 Documentation Only INTERFACED REPORT Unknown, Provider Social History Tobacco Use Types Packs/Day Years Used Date Smoking Tobacco: Never Smokeless Tobacco: Never Alcohol Use Standard Drinks/Week Comments No 0 (1 standard drink = 0.6 oz pur e alcohol) Sex and Gender Information Value Date Recorded Sex Assigned at Not on file Gender Identity Not on file Sexual Orientation Not on file documented as of this encounter Plan of Treatment Not on file documented as of this encounter Visit Diagnoses Not on filedocumented in this encounter Care Teams Ur Coordinator Relationship Specialty Start Date End Date No Ref-Primary, Physician PCP - General 04/15/19 11/20/[address] [address] PCP - General 11/21/20 documented as of this encounter
--- OUTSIDE RECORDS SUMMARY | 2024-01-24 03:50 | XMS_ITS | Encounter Summary ---
Author Organization [facility] Address [address] [place] [address] Care Team Providers Care Zoogler Name Role Phone No Ref-Primary, Physician Primary Care Provider [facility] Primary Care Provider Encounter Details Date Type Department Care Team (Late st Contact Info) Description 08/21/2020 Documentation Only INTERFACED REPORT Unknown, Provider Social [...] on filedocumented in this encounter Care Teams Zoogler Relationship Specialty Start Date End Date No Ref-Primary, Physician PCP - General 04/15/19 11/20/[address] [address] PCP - General 11/21/20 documented as of this encounter
[2024-01-24 04:42] VITALS: O2SAT 98
--- NOTE | 2024-01-24 05:34 | PC.NURSE ---
Pt set up for elective cardioversion. Pt placed on pads, cart in room, pads connected to zoll, suction and ambu readily available. Pt signed consent, no further questions or concerns. Time out done with POWER GENERATING PLANT OPERATOR, physician. Zoll synched and 200J selected.
[2024-01-24 05:35] VITALS: BP 114/85; PULSE 128; RESP 16; O2SAT 98
--- NOTE | 2024-01-24 05:36 | PC.NURSE ---
Pt successfully converted, EKG done. NSR rate in the 80's, VSS.
--- NOTE | 2024-01-24 05:36 | P.ANES_ITS ---
Anesthesia Charges Start Date/Time Anesthesia Start Date: 01/24/24 Anesthesia Start Time: 05:15 Stop Date/Time Anesthesia Stop Date: 01/24/24 Anesthesia Stop Time: 05:45 Summary Emergency: MANAGEMENT INFORMATION SYSTEMS DIRECTOR
[2024-01-24 05:37] VITALS: BP 122/78; PULSE 80; RESP 16; TEMP 36.7; O2SAT 98
[2024-01-24 07:56] VITALS: BP 124/78; PULSE 80; RESP 16; TEMP 36.7
== END 2024-01-24 06:35 | disposition home or self-care (01) ==
PROVIDERS: Emergency Provider Emergency Medicine; PCP Family Medicine
DX: I48.91 Unspecified atrial fibrillation (principal)
CPT/HCPCS: 92960; 00410; 36415; 80048; 83735; 84439; 84443; 84484; 85025; 93005; 94761; 99140; 99284; 99285; J2704; J7030

== ENCOUNTER 2024-02-22 19:16 | Emergency (ER) | payer BC, SELFPAY ==
[2024-02-22] VITALS (16 sets, daily range): BP systolic 100–139; BP diastolic 63–116; PULSE 96–140; RESP 16–144; TEMP 36.6; O2SAT 94–444; BMI 57.8
--- NOTE | 2024-02-22 19:43 | ED.ARRPALP ---
HPI - Arrhythmia/Palpitations General Chief Complaint: Arrhythmia/Palpitations <Orestes Feliz MD - Last Filed: 02/22/24 20:25> Stated Complaint: a-fib <Orestes Feliz MD - Last Filed: 02/22/24 20:25> Time Seen by Provider: 02/22/24 19:22 <Orestes Feliz MD - Last Filed: 02/22/24 20:25> History of Present Illness HPI narrative: This 24-year-old male comes in because of recurrent atrial fibrillation with rapid ventricular response. He states that he has been cardioverted a couple times in the past for atrial fibrillation. The last episode occurred about a month ago. He is currently taking Eliquis but states that he has not been real consistent in taking this medicine. He does not report any chest pain or shortness of breath. He states that he noticed his heart shifting to a fast rate about an hour prior to arrival. <Orestes Feliz MD - Last Filed: 02/22/24 20:25> Related Data Home Medications: Home Medications ?Medication ?Instructions ?Recorded ?Confirmed ibuprofen 600 mg tablet 600 mg PO Q6H PRN pain 11/16/22 03/29/23 Previous Rx's ?Medication ?Instructions ?Recorded nirmatrelvir 300 mg (150 mg 3 ea (3 x 300 mg (150 mg x 2)-100 03/29/23 x2)-ritonavir 100 mg tablet,dose mg) PO QAM AND QPM #30 tabs pack (Paxlovid) apixaban 5 mg tablet (Eliquis) 5 mg PO BID #60 tabs 01/24/24 <Orestes Feliz MD - Last Filed: 02/22/24 20:25> Allergies/Adverse Reactions: Allergies Allergy/AdvReac Type Severity Reaction Status Date / Time fexofenadine Allergy Severe A-FIB Verified 03/29/23 12:58 Antihistamines - Alkylamine Allergy Mild arrhythmia Verified 03/29/23 12:58 loratadine Allergy Unknown Verified 03/29/23 12:58 <Orestes Feliz MD - Last Filed: 02/22/24 20:25> Review of Systems Status of ROS: Reports: 10 or more systems reviewed and unremarkable except as noted in History and below <Orestes Feliz MD - Last Filed: 02/22/24 20:25> Narrative: Constitutional: No fevers, no weight gain or loss. Eyes: No discharge. No vision changes. HENT: No congestion, no sore throat, no ear pain. Cardiovascular: No chest pain, no palpitations. Respiratory: No shortness of breath, no wheezes, no cough. Gastrointestinal: No abdominal pain, no vomiting, no diarrhea. Genitourinary: No dysuria, no hematuria. Musculoskeletal: Normal range of motion. Skin: No rashes, no pruritis. Neurological: No dizziness, weakness, sensory change, speech change. Endo/Heme/Allergies: No bruising or bleeding. No polydipsia. Pysch: no suicidality, no anxiety, no insomnia. All other systems reviewed and are negative. <Orestes Feliz MD - Last Filed: 02/22/24 20:25> 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 due to unidentified influenza virus with myocarditis (ICD-10) Hypertension ?I10 - Essential (primary) hypertension (ICD-10) Chest pain ?R07.9 - Chest pain, unspecified (ICD-10) Atrial fibrillation with rapid ventricular response ?I48.91 - Unspecified atrial fibrillation (ICD-10) Myocarditis ?I51.4 - Myocarditis, unspecified (ICD-10) Atrial fibrillation ?I48.91 - Unspecified atrial fibrillation (ICD-10) <Orestes Feliz MD - Last Filed: 02/22/24 20:25> Surgical History: Surgical History History of ankle surgery ?Z98.890 - Other specified postprocedural states (ICD-10) <Orestes Feliz MD - Last Filed: 02/22/24 20:25> Social History: Social History What is your current living situation?: I presently have a place to live Problems where you live: no known problems In the past 12 months, utilities in danger of being shut off: no In the past 12 mos, have been you worried that your food would run out before you had money to buy more?: never true In the past 12 mos, the food you bought just didn't last and you didn't have money to buy more?: never true Smoking Status: Never smoker Do you use any of these nicotine containing products: None Second hand tobacco smoke exposure: No How often do you have a drink containing alcohol: monthly or less How many standard drinks containing alcohol do you have on a typical day: 1 or 2 How often do you have six or more drinks on one occasion: Never AUDIT-C Alcohol total score: 1 Non-prescribed substance use: denies use How often does anyone, including family, friends and others, physically hurt you: How often does anyone, including family, friends and others, insult or talk down to you: How often does anyone, including family, friends and others, threaten you with harm: How often does anyone, including family, friends and others, scream or curse at you: Little interest or pleasure in doing things: not at all Feeling down, depressed, or hopeless: several days service: No <Orestes Feliz MD - Last Filed: 02/22/24 20:25> Exam Narrative: Exam Narrative: Constitutional: Well-developed, well-nourished, no acute distress. HEENT: Normocephalic, atraumatic. Neck: Normal range of motion. Nontender. Supple. Heart: Tachycardia. Intact distal pulses. Lungs: Clear to auscultation. No chest discomfort. No wheezes, rhonchi, or rales. Abdomen: Normal bowel sounds. Nontender. No rebound tenderness. Genitalia: Deferred. Back: No midline tenderness. Normal range of motion. Extremities: Normal range of motion. No injury. Skin: Intact. No rash. Warm. No erythema or pallor. Neurologic: No altered sensation. No weakness. Alert and oriented. Psychiatric: No suicidality. No anxiety or depression. No insomnia. Nursing notes and vitals signs are reviewed. <Orestes Feliz MD - Last Filed: 02/22/24 20:25> Const: Vital Signs, click to edit/add: Vital Signs - 24 hr 02/22/24 19:24 Temperature 97.9 F Pulse Rate [Pulse Oximeter] 140 H Respiratory Rate 16 Blood Pressure [Ri ght Upper Arm] 139/116 H Pulse Oximetry 98 Oxygen Delivery Me thod Room Air <Orestes Feliz MD - Last Filed: 02/22/24 20:25> Vital Signs, click to edit/add: Vital Signs - 24 hr 02/22/24 19:24 Temperature 97.9 F Pulse Rate [Pulse Oximeter] 140 H Respiratory Rate 16 Blood Pressure [Ri ght Upper Arm] 139/116 H Pulse Oximetry 98 Oxygen Delivery Me thod Room Air <Alfredo Santos DO - Last Filed: 02/24/24 11:26> Course Vital Signs Vital signs: Initial Vital Signs Temperature 97.9 F 02/22/24 19:24 Temperature Source Temporal Artery Scan 02/22/24 19:24 Pulse Rate 140 H 02/22/24 19:24 Pulse Rhythm Irregular 02/22/24 19:24 Respiratory Rate 16 02/22/24 19:24 Blood Pressure 139/116 H 02/22/24 19:24 Blood Pressure Mean 123 H 02/22/24 19:24 Blood Pressure Position Supine 02/22/24 19:24 Pulse Oximetry 98 02/22/24 19:24 Oxygen Delivery Method Room Air 02/22/24 19:24 Vital Signs Temperature 97.9 F 02/22/24 19:24 Pulse Rate 140 H 02/22/24 19:24 Respiratory Rate 16 02/22/24 19:24 Blood Pressure 139/116 H 02/22/24 19:24 Pulse Oximetry 98 02/22/24 19:24 Oxygen Delivery Method Room Air 02/22/24 19:24 Temperature 97.9 F 02/22/24 20:15 Pulse Rate 107 H 02/22/24 21:15 Respiratory Rate 16 02/22/24 21:15 Blood Pressure 112/88 02/22/24 21:15 Pulse Oximetry 98 02/22/24 21:15 Oxygen Delivery Method Room Air 02/22/24 21:15 Oxygen Flow Rate 2 02/22/24 20:20 <Orestes Feliz MD - Last Filed: 02/22/24 20:25> Initial Vital Signs Temperature 97.9 F 02/22/24 19:24 Temperature Source Temporal Artery Scan 02/22/24 19:24 Pulse Rate 140 H 02/22/24 19:24 Pulse Rhythm Irregular 02/22/24 19:24 Respiratory Rate 16 02/22/24 19:24 Blood Pressure 139/116 H 02/22/24 19:24 Blood Pressure Mean 123 H 02/22/24 19:24 Blood Pressure Position Supine 02/22/24 19:24 Pulse Oximetry 98 02/22/24 19:24 Oxygen Delivery Method Room Air 02/22/24 19:24 Vital Signs Temperature 97.9 F 02/22/24 19:24 Pulse Rate 140 H 02/22/24 19:24 Respiratory Rate 16 02/22/24 19:24 Blood Pressure 139/116 H 02/22/24 19:24 Pulse Oximetry 98 02/22/24 19:24 Oxygen Delivery Method Room Air 02/22/24 19:24 Temperature 97.9 F 02/22/24 20:15 Pulse Rate 107 H 02/22/24 21:15 Respiratory Rate 16 02/22/24 21:15 Blood Pressure 112/88 02/22/24 21:15 Pulse Oximetry 98 02/22/24 21:15 Oxygen Delivery Method Room Air 02/22/24 21:15 Oxygen Flow Rate 2 02/22/24 20:20 <Alfredo Santos DO - Last Filed: 02/24/24 11:26> Medications Administered Medications: Discontinued Medications Generic Name Dose Route Start Last Admin Trade Name Freq PRN Reason Stop Dose Admin Lorazepam 1 mg 02/22/24 21:07 02/22/24 21:09 Lorazepam 2 Mg/Ml Inj IV 02/22/24 21:08 1 mg ONCE ONE Administration Propofol 200 mg 02/22/24 19:36 02/22/24 20:15 Propofol 10 Mg/Ml Inj IVP 02/22/24 19:37 140 mg ONCE ONE Administration <Orestes Feliz MD - Last Filed: 02/22/24 20:25> Discontinued Medications Generic Name Dose Route Start Last Admin Trade Name Freq PRN Reason Stop Dose Admin Lorazepam 1 mg 02/22/24 21:07 02/22/24 21:09 Lorazepam 2 Mg/Ml Inj IV 02/22/24 21:08 1 mg ONCE ONE Administration Propofol 200 mg 02/22/24 19:36 02/22/24 20:15 Propofol 10 Mg/Ml Inj IVP 02/22/24 19:37 140 mg ONCE ONE Administration <DO Rosmery Walker Last Filed: 02/24/24 11:26> MDM - Arrhythmia/Palpitations MDM Narrative Medical decision making narrative: This patient comes in with recurrent atrial fibrillation and rapid ventricular response. He is not really having any symptoms that he could feel when his heart rate began going fast and irregular just prior to arrival. An IV is established and labs returned with normal findings. The patient is agreeable to having a synchronized electrocardioversion to restore normal sinus rhythm. After acquiring informed consent the patient received 140 mg of propofol administered by Dr. Santos. This brought sufficient sedation at which time synchronized cardioversion was performed using 200 joules of energy. This brought him back to normal sinus rhythm. Repeat EKG confirms this with a heart rate at 100 beats per minute. The patient is okay to be discharged home and encouraged to follow-up with cardiology clinic. He is interested in doing this. He is currently taking Eliquis. I did provide a refill of this medicine to continue with it for the next month or so at least. <Orestes Feliz MD - Last Filed: 02/22/24 20:25> Lab Data Labs: Lab Results 02/22/24 02/22/24 Range/Units 19:32 19:33 WBC 7.23 (4.50-11.00) K/uL RBC 5.98 H (4.30-5.90) m/uL Hgb 16.7 (13.5-17.5) gm/dL Hct 48.9 (37.0-53.0) % MCV 82 (80-100) fL MCH 28 (26-34) pg MCHC 34 (32-36) gm/dL RDW Coeff of Holli 12.0 (11.5-15.5) % Plt Count 234 (140-440) K/uL Neut % (Auto) 53.9 (42.0-72.0) % Lymph % (Auto) 35.1 (20-44) % Phelps % (Auto) 7.3 (0.0-11.0) % Eos % (Auto) 3.2 (0.0-7.0) % Baso % (Auto) 0.4 (0.0-3.0) % Neut # (Auto) 3.89 (1.7-7.0) K/uL Lymph # (Auto) 2.54 (0.90-2.90) K/uL Phelps # (Auto) 0.50 (0.00-0.90) K/UL Eos # (Auto) 0.23 (0.00-0.50) K/uL Baso # (Auto) 0.03 (0.00-0.30) K/uL Abs Immat Gran (auto) 0.01 (0.00-0.30) K/uL Imm/Tot Granulo (auto) 0.1 % Sodium 138 (135-149) mmol/L Potassium 4.0 (3.6-5.1) mmol/L Chloride 102 (96-114) mmol/L Carbon Dioxide 26 (20-32) mmol/L Anion Gap 10 (7-15) mEq/L BUN 11 (5-24) mg/dL Creatinine 0.8 (0.5-1.5) mg/dL Estimated Creat Clear 164.11 Estimated GFR 126 ml/min Glucose 100 (60-115) mg/dL Calcium 10.0 (8.4-10.6) mg/dL Magnesium 2.1 (1.5-2.6) mg/dL <Orestes Feliz MD - Last Filed: 02/22/24 20:25> Lab Results 02/22/24 02/22/24 Range/Units 19:32 19:33 WBC 7.23 (4.50-11.00) K/uL RBC 5.98 H (4.30-5.90) m/uL Hgb 16.7 (13.5-17.5) gm/dL Hct 48.9 (37.0-53.0) % MCV 82 (80-100) fL MCH 28 (26-34) pg MCHC 34 (32-36) gm/dL RDW Coeff of Holli 12.0 (11.5-15.5) % Plt Count 234 (140-440) K/uL Neut % (Auto) 53.9 (42.0-72.0) % Lymph % (Auto) 35.1 (20-44) % Phelps % (Auto) 7.3 (0.0-11.0) % Eos % (Auto) 3.2 (0.0-7.0) % Baso % (Auto) 0.4 (0.0-3.0) % Neut # (Auto) 3.89 (1.7-7.0) K/uL Lymph # (Auto) 2.54 (0.90-2.90) K/uL Phelps # (Auto) 0.50 (0.00-0.90) K/UL Eos # (Auto) 0.23 (0.00-0.50) K/uL Baso # (Auto) 0.03 (0.00-0.30) K/uL Abs Immat Gran (auto) 0.01 (0.00-0.30) K/uL Imm/Tot Granulo (auto) 0.1 % Sodium 138 (135-149) mmol/L Potassium 4.0 (3.6-5.1) mmol/L Chloride 102 (96-114) mmol/L Carbon Dioxide 26 (20-32) mmol/L Anion Gap 10 (7-15) mEq/L BUN 11 (5-24) mg/dL Creatinine 0.8 (0.5-1.5) mg/dL Estimated Creat Clear 164.11 Estimated GFR 126 ml/min Glucose 100 (60-115) mg/dL Calcium 10.0 (8.4-10.6) mg/dL Magnesium 2.1 (1.5-2.6) mg/dL <Alfredo Santos DO - Last Filed: 02/24/24 11:26> ECG Data Attestation: I personally reviewed and interpreted this ECG as follows: <Orestes Feliz MD - Last Filed: 02/22/24 20:25> Interpretation: Atrial fibrillation with rapid ventricular response. Rate is 140 beats per minute. There are no ST or T-wave abnormalities. Repeat EKG after cardioversion shows normal sinus rhythm with a rate 100 beats per minute. There are no ST or T-wave abnormalities. <Orestes Feliz MD - Last Filed: 02/22/24 20:25> Discharge Plan Discharge Clinical Impression: Atrial fibrillation with rapid ventricular response <Orestes Feliz MD - Last Filed: 02/22/24 20:25> Patient Disposition: Home w/ Parent or Adult <Orestes Feliz MD - Last Filed: 02/22/24 20:25> Condition: Improved <Orestes Feliz MD - Last Filed: 02/22/24 20:25> Additional Instructions: Continue with Eliquis as prescribed. Follow-up with cardiology clinic for further evaluation treatment. Return if symptoms are recurrent. <Orestes Feliz MD - Last Filed: 02/22/24 20:25> Prescriptions: No Action ibuprofen 600 mg tablet 600 mg PO Q6H PRN (Reason: pain) Paxlovid 300 mg (150 mg x 2)-100 mg tablets,dose pack 3 ea PO QAM AND QPM Qty: 30 0RF Eliquis 5 mg tablet 5 mg PO BID Qty: 60 2RF <Orestes Feliz MD - Last Filed: 02/22/24 20:25> Follow Up/Referrals: Ricci Burnette MD [Primary Care Provider] - <Orestes Feliz MD - Last Filed: 02/22/24 20:25> [facility] <Orestes Feliz MD - Last Filed: 02/22/24 20:25> Procedures Procedural Sedation Pre procedure diagnosis: AFib with RVR <Alfredo Santos DO - Last Filed: 02/24/24 11:26> Post procedure diagnosis: Normal sinus rhythm <Alfredo Santos DO - Last Filed: 02/24/24 11:26> Written consent by: patient <Alfredo Santos DO - Last Filed: 02/24/24 11:26> Verification/time out: correct patient <Alfredo Santos DO - Last Filed: 02/24/24 11:26> Name of person perfmorming the procedure: Alfredo Santos <Alfredo Santos DO - Last Filed: 02/24/24 11:26> Indication: other (Cardioversion) <Alfredo Santos DO - Last Filed: 02/24/24 11:26> ASA Class: III (Due to his obesity) <Alfredo Santos DO - Last Filed: 02/24/24 11:26> Time of Last PO Intake: 18:00 <Alfredo Santos DO - Last Filed: 02/24/24 11:26> Mallampati classification: II. soft palate, fauces, uvula visible <Alfredo Santos DO - Last Filed: 02/24/24 11:26> Preparation: bus driver/monitor applied, pulse oximeter, capnometry used, supplemental O2 applied, reversal agents at bedside, suction/airway equipment at bedside and IV secured <Alfredo Santos DO - Last Filed: 02/24/24 11:26> IV Propofol dose (mg): 140 <Alfredo Santos DO - Last Filed: 02/24/24 11:26> Patient Tolerated Procedure: well and no complications <Alfredo Santos DO - Last Filed: 02/24/24 11:26> Complications: none <Alfredo Santos DO - Last Filed: 02/24/24 11:26>
--- OUTSIDE RECORDS SUMMARY | 2024-02-22 19:47 | XMS_ITS | Clinical Summary ---
Author Organization [facility] Address [address] [address] Care Team Providers Care Ict Support And Test Engineers Name Role Phone Needs Pcp, Assignment Primary Care Provider [phone] Source Comments You are receiving this document [...] for each transition of care or referral. Docebo Allergies Active Allergy Reactions Criticality Noted Date [...] Overview (01/20/2017): Secondary to influenza. Hospitalized at [facility] Followed by [facility] (Dr. Galarza). ; History of myocarditis Obesity due to excess calories 02/11/2016 Seasonal allergies 2016 Routine or child health check 08/25/2010 Overview (01/20/2017): Well Marble Polisher Hand Multisystem Exam 0-17yr Resolved Problems Problem Noted [...] T Respiratory Rate 18 07/27/2017 2:52 PM ELECTRIC WELL LOGGING OPERATOR Oxygen Saturation 98% 02/19/2022 1:03 PM CDT [...] 11/25/2021 09/02/2021, 05/03/2019 COVID-19 Vaccine ( season) 2024 04/30/2021, 09/10/2020, 08/20/2020 Influenza (#1) 2024 03/09/2020, [...] age to complete this topic Care Teams Ict Support And Test Engineers Relationship Specialty Start Date End Date Needs Pcp, [place] [address] PCP - General 09/09/16
--- OUTSIDE RECORDS SUMMARY | 2024-02-22 19:47 | XMS_ITS | Encounter Summary ---
Author Organization [place] Address [address] [place] [address] Care Team Providers Care Director Digital Advertising Name Role Phone No Ref-Primary, Physician Primary Care Provider [facility] Primary Care Provider Encounter [...] on filedocumented in this encounter Care Teams Director Digital Advertising Relationship Specialty Start Date End Date No Ref-Primary, Physician PCP - General 04/15/19 11/20/[address] [address] PCP - General 11/21/20 documented as of this encounter
--- OUTSIDE RECORDS SUMMARY | 2024-02-22 19:47 | XMS_ITS | Referral Summary ---
Author Organization [place] Address [address] [place] [address] Care Team Providers Care Fishing Worker Name Role Phone Clinic, [facility] Primary Care Provider Allergies Active Allergy [...] on file Medical Devices Implanted Type Area Director Of Sales Device Identifier Shelf Expiration Date Model / Serial / Lot Imp Scr Arthrex Non-Locking Canc Vahe 2.7x20mm Ar-8827-20 - [id number] Implanted:Qty: 1 on 11/27/2020 by Tan Myers MD at [facility] Metallic Hardware/Anc hor Right: Ankle ARTHREX AR-8827-2 [id number] Imp Scr Arthrex Non-Locking Canc Vahe 2.7x24mm Ar-8827-24 - [id number] Implanted:Qty: 1 on 11/27/2020 by Tan Myers MD at [facility] Metallic Hardware/Anc hor Right: Ankle ARTHREX AR-8827-2 [id number] Locking Third Tubular Plate 8 Holes Implanted:Qty: 1 on 11/27/2020 by Tan Myers MD at [facility] Right: Ankle ARTHREX AR-8943T- [id number] 4mm Cancellous Fully Threaded 16mm Implanted:Qty: 2 on 11/27/2020 by Tan Myers MD at [facility] Right: Ankle ARTHREX AR-8840-1 8002 [id number] 4mm Cancellous Fully Threaded 18mm Implanted:Qty: 1 on 11/27/2020 by Tan Myers MD at [facility] Right: Ankle ARTHREX AR-8840-1 8002 [id number] 3.5mm Cortical Screw 16mm Implanted:Qty: 2 on 11/27/2020 by Tan Myers MD at [facility] Right: Ankle ARTHREX AR-8835-1 8002 [id number] 3.5mm Cortical Screw 20mm Implanted:Qty: 1 on 11/27/2020 by Tan Myers MD at [facility] Right: Ankle ARTHREX AR-8835-2 8002 [id number] Care Teams Fishing Worker Relationship Specialty Start Date End Date [facility] [address] [address] PCP - General 11/21/20
--- OUTSIDE RECORDS SUMMARY | 2024-02-22 19:47 | XMS_ITS | Clinical Summary ---
Author Organization [place] Address [address] [place] [address] Care Team Providers Care Lead Painter Name Role Phone Clinic, [facility] Primary Care Provider Allergies Active Allergy [...] (2 - Male 3-dose series) 05/31/2019 05/03/2019 PHQ-2 (once per calendar year) 2023 COVID-19 Vaccine ( season) 2024 09/10/2020, 08/20/2020 INFLUENZA VACCINE (#1) 2024 8, 03/21/2017, 03/15/2012, Additional history exists DTAP/TDAP/TD IMMUNIZATION (8 - Td or Tdap) 11/27/2029 11/28/2019, 08/25/2010, 04/04/2004, Additional history exists HEPATITIS B IMMUNIZATION Completed 000, 04/30/2000, 1999, Additional history exists MENINGITIS IMMUNIZATION Aged [...] this topic Medical Devices Implanted Type Area Managing Consultant Clinical Professor Device Identifier Shelf Expiration Date Model / Serial / Lot Imp Scr Arthrex Non-Locking Canc Vahe 2.7x20mm Ar-8827-20 - [id number] Implanted:Qty: 1 on 11/27/2020 by Tan Myers MD at [facility] Metallic Hardware/Anc hor Right: Ankle ARTHREX AR-8827-2 8002 [id number] Imp Scr Arthrex Non-Locking Canc Vahe 2.7x24mm Ar-8827-24 - [id number] Implanted:Qty: 1 on 11/27/2020 by Tan Myers MD at [facility] Metallic Hardware/Anc hor Right: Ankle ARTHREX AR-8827-2 8002 [id number] Locking Third Tubular Plate 8 Holes Implanted:Qty: 1 on 11/27/2020 by Tan Myers MD at [facility] Right: Ankle ARTHREX AR-8943T- [id number] 4mm Cancellous Fully Threaded 16mm Implanted:Qty: 2 on 11/27/2020 by Tan Myers MD at [facility] Right: Ankle ARTHREX AR-8840-1 8002 [id number] 4mm Cancellous Fully Threaded 18mm Implanted:Qty: 1 on 11/27/2020 by Tan Myers MD at [facility] Right: Ankle ARTHREX AR-8840-1 8002 [id number] 3.5mm Cortical Screw 16mm Implanted:Qty: 2 on 11/27/2020 by Tan Myers MD at [facility] Right: Ankle ARTHREX AR-8835-1 8002 [id number] 3.5mm Cortical Screw 20mm Implanted:Qty: 1 on 11/27/2020 by Tan Myers MD at [facility] Right: Ankle ARTHREX AR-8835-2 [id number] Care Teams Lead Painter Relationship Specialty Start Date End Date Clinic, [address] [id number] PCP - General 11/21/20
--- OUTSIDE RECORDS SUMMARY | 2024-02-22 19:47 | XMS_ITS | Encounter Summary ---
Author Organization [place] Address [address] [place] [address] Care Team Providers Care Candy Roller Name Role Phone No Ref-Primary, Physician Primary Care Provider [facility] Primary Care Provider Encounter Details [...] on filedocumented in this encounter Care Teams Candy Roller Relationship Specialty Start Date End Date No Ref-Primary, Physician PCP - General 04/15/19 11/20/[address] [address] PCP - General 11/21/20 documented as of this encounter
--- OUTSIDE RECORDS SUMMARY | 2024-02-22 19:47 | XMS_ITS | Clinical Summary ---
Author Organization [facility] Address [place], [place] [address] Care Team Providers Care Mess Attendant Crew Name Role Phone Pcp, No Primary Care [...] 188 cm (6' 2) 04/12/2019 8:14 PM WEBLOGIC DEVELOPER Body Mass Index - - Plan of [...] 07/27/2016 Tetanus booster 2019 COVID-19 vaccine series (2022- season) 2024 05/12/2022, 04/30/2021, 09/10/2020, Additional history exists Influenza for age 9-49 01/30/2024 Pneumococcal series for age 6-64 Aged Out No longer eligible based on patient's age to complete this topic Care Teams Mess Attendant Crew Relationship Specialty Start Date End Date Pcp, No . PCP - General 04/12/19
[2024-02-22 19:59] LABS: Basophils Absolute Auto 0.03 K/uL (0.00-0.30); Basophils Percent Auto 0.4 % (0.0-3.0); Eosinophils Absolute Auto 0.23 K/uL (0.00-0.50); Eosinophils Percent Auto 3.2 % (0.0-7.0); Hematocrit 48.9 % (37.0-53.0); Hemoglobin* 16.7 gm/dL (13.5-17.5); Immature Granulocytes Abs Auto 0.01 K/uL (0.00-0.30); Immature Granulocytes Pct Auto 0.1 %; Lymphocytes Absolute Auto 2.54 K/uL (0.90-2.90); Lymphocytes Percent Auto 35.1 % (20-44); Mean Corpuscular HGB Conc 34 gm/dL (32-36); Mean Corpuscular Hemoglobin 28 pg (26-34); Mean Corpuscular Volume 82 fL (80-100); Monocytes Percent Auto 7.3 % (0.0-11.0); Neutrophils Absolute Auto 3.89 K/uL (1.7-7.0); Neutrophils Percent Auto 53.9 % (42.0-72.0); Platelet Count* 234 K/uL (140-440); Red Blood Count 5.98 m/uL (4.30-5.90); White Blood Count* 7.23 K/uL (4.50-11.00)
[2024-02-22 20:01] LABS: Chloride* 102 mmol/L (96-114); Sodium* 138 mmol/L (135-149)
[2024-02-22 20:01] LABS: Slide Review Reflex No
[2024-02-22 20:04] LABS: Anion Gap 10 mEq/L (7-15); Blood Urea Nitrogen* 11 mg/dL (5-24); Carbon Dioxide* 26 mmol/L (20-32); Creatinine* 0.8 mg/dL (0.5-1.5); Est. Creatinine Clearance* 164.11; Estimated Glomerular Filt Rate 126 ml/min
[2024-02-22 20:05] LABS: Glucose* 100 mg/dL (60-115); Magnesium* 2.1 mg/dL (1.5-2.6)
[2024-02-22] MEDS: PROPOFOL 10 MG/ML INJ 200 MG IVP (20:15)
[2024-02-22] MEDS: LORazepam 2 MG/ML inj 1 MG IV (21:09)
== END 2024-02-22 21:25 | disposition home or self-care (01) ==
PROVIDERS: Emergency Provider Emergency Medicine Emergency Medical Services; PCP Family Medicine
DX: I48.91 Unspecified atrial fibrillation (principal)
CPT/HCPCS: 92960; 99156; 36415; 80048; 83735; 85025; 93005; 96374; 99284; J2060; J2704

== ENCOUNTER 2024-03-10 13:51 | Outpatient (CLI) | payer BC, SELFPAY ==
--- OUTSIDE RECORDS SUMMARY | 2024-03-10 13:55 | XMS_ITS | Encounter Summary ---
Author Organization [place] Address [address] [place] [address] Care Team Providers Care Media Center Specialist Name Role Phone No Ref-Primary, Physician Primary Care Provider [facility] Primary Care Provider Encounter Details Date Type [...] on filedocumented in this encounter Care Teams Media Center Specialist Relationship Specialty Start Date End Date No Ref-Primary, Physician PCP - General 04/15/19 11/20/[address] [address] PCP - General 11/21/20 documented as of this encounter
--- OUTSIDE RECORDS SUMMARY | 2024-03-10 13:55 | XMS_ITS | Referral Summary ---
Author Organization [place] Address [address] [place] [address] Care Team Providers Care Overseer Kosher Kitchen Name Role Phone Clinic, [facility] Primary Care Provider Allergies Active Allergy Reactions [...] on file Medical Devices Implanted Type Area Rug Scratcher Device Identifier Shelf Expiration Date Model / Serial / Lot Imp Scr Arthrex Non-Locking Canc Vahe 2.7x20mm Ar-8827-20 - [id number] Implanted:Qty: 1 on 11/27/2020 by Tan Myers MD at [facility] Metallic Hardware/Anc hor Right: Ankle ARTHREX AR-8827-2 [id number] Imp Scr Arthrex Non-Locking Canc Vahe 2.7x24mm Ar-8827-24 - [id number] Implanted:Qty: 1 on 11/27/2020 by Tan Myers MD at [facility] Metallic Hardware/Anc hor Right: Ankle ARTHREX AR-8827-2 [id number] Locking Third Tubular Plate 8 Holes Implanted:Qty: 1 on 11/27/2020 by Tan Myers MD at [facility] Right: Ankle ARTHREX AR-8943T- [id number] 4mm Cancellous Fully Threaded 16mm Implanted:Qty: 2 on 11/27/2020 by Tan Myers MD at [facility] Right: Ankle ARTHREX AR-8840-1 8002 [id number] 4mm Cancellous Fully Threaded 18mm Implanted:Qty: 1 on 11/27/2020 by Tan Myers MD at [facility] Right: Ankle ARTHREX AR-8840-1 8002 [id number] 3.5mm Cortical Screw 16mm Implanted:Qty: 2 on 11/27/2020 by Tan Myers MD at [facility] Right: Ankle ARTHREX AR-8835-1 8002 [id number] 3.5mm Cortical Screw 20mm Implanted:Qty: 1 on 11/27/2020 by Tan Myers MD at [facility] Right: Ankle ARTHREX AR-8835-2 8002 [id number] Care Teams Overseer Kosher Kitchen Relationship Specialty Start Date End Date [facility] [address] [address] PCP - General 11/21/20
--- OUTSIDE RECORDS SUMMARY | 2024-03-10 13:55 | XMS_ITS | Clinical Summary ---
Author Organization [place] Address [address] [place] [address] Care Team Providers Care Historical Interpreter Name Role Phone Clinic, [facility] Primary Care Provider Allergies Active Allergy [...] 11/27/2029 11/28/2019, 08/25/2010, 04/04/2004, Additional history exists RSV VACCINE (1 - 1-dose 75+ series) 2074 HEPATITIS B IMMUNIZATION Completed 000, 04/30/2000, 1999, [...] this topic Medical Devices Implanted Type Area Environmental Auditor Device Identifier Shelf Expiration Date Model / Serial / Lot Imp Scr Arthrex Non-Locking Canc Vahe 2.7x20mm Ar-8827-20 - [id number] Implanted:Qty: 1 on 11/27/2020 by Tan Myers MD at [facility] Metallic Hardware/Anc hor Right: Ankle ARTHREX AR-8827-2 8002 [id number] Imp Scr Arthrex Non-Locking Canc Vahe 2.7x24mm Ar-8827-24 - [id number] Implanted:Qty: 1 on 11/27/2020 by Tan Myers MD at [facility] Metallic Hardware/Anc hor Right: Ankle ARTHREX AR-8827-2 8002 [id number] Locking Third Tubular Plate 8 Holes Implanted:Qty: 1 on 11/27/2020 by Tan Myers MD at [facility] Right: Ankle ARTHREX AR-8943T- 8002 [id number] 4mm Cancellous Fully Threaded 16mm Implanted:Qty: 2 on 11/27/2020 by Tan Myers MD at [facility] Right: Ankle ARTHREX AR-8840-1 8002 [id number] 4mm Cancellous Fully Threaded 18mm Implanted:Qty: 1 on 11/27/2020 by Tan Myers MD at [facility] Right: Ankle ARTHREX AR-8840-1 8002 [id number] 3.5mm Cortical Screw 16mm Implanted:Qty: 2 on 11/27/2020 by Tan Myers MD at [facility] Right: Ankle ARTHREX AR-8835-1 [id number] 3.5mm Cortical Screw 20mm Implanted:Qty: 1 on 11/27/2020 by Tan Myers MD at [facility] Right: Ankle ARTHREX AR-8835-2 [id number] Care Teams Historical Interpreter Relationship Specialty Start Date End Date [facility], [address] [address] PCP - General 11/21/20
--- OUTSIDE RECORDS SUMMARY | 2024-03-10 13:55 | XMS_ITS | Encounter Summary ---
Author Organization [place] Address [address] [place] [address] Care Team Providers Care Stone Planer Name Role Phone No Ref-Primary, Physician Primary Care Provider [facility] Primary Care Provider Encounter Details Date [...] on filedocumented in this encounter Care Teams Stone Planer Relationship Specialty Start Date End Date No Ref-Primary, Physician PCP - General 04/15/19 11/20/[address] [address] PCP - General 11/21/20 documented as of this encounter
--- OUTSIDE RECORDS SUMMARY | 2024-03-10 13:55 | XMS_ITS | Clinical Summary ---
Author Organization [facility] Address [address], [place] [address] Care Team Providers Care Applied Exercise Physiologist Name Role Phone Needs Pcp, Assignment Primary Care Provider [phone] Source Comments You are receiving this document [...] for each transition of care or referral. [facility] Allergies Active Allergy Reactions Criticality Noted Date [...] Overview (01/20/2017): Secondary to influenza. Hospitalized at [facility] (Dr. Galarza). ; History of myocarditis Obesity due to excess calories 02/11/2016 Seasonal allergies 2016 Routine or child health check 08/25/2010 Overview (01/20/2017): Well Exploitation Analyst Multisystem Exam 0-17yr Resolved Problems Problem Noted [...] T Respiratory Rate 18 07/27/2017 2:52 PM QUALITY TECHNICIAN FIBERGLASS Oxygen Saturation 98% 02/19/2022 1:03 PM CDT [...] Completed 08/25/2010, 04/30/2000 HepA Completed 05/28/2011, 08/25/2010 RSV Aged Out No longer eligi ble based on patient's age to complete this topic Pneumococcal Aged Out No longer eligi ble based on patient's age to complete this topic Care Teams Applied Exercise Physiologist Relationship Specialty Start Date End Date Needs Pcp, [place] [address] PCP - General 09/09/16
--- OUTSIDE RECORDS SUMMARY | 2024-03-10 13:56 | XMS_ITS | Clinical Summary ---
Author Organization [facility] Address [place], [place] [address] Care Team Providers Care Doughnut Glazier Name Role Phone Pcp, No Primary Care [...] Active Active Problems No known active problems Encounters Date Type Department Care Team Description 03/02/2024 2:00 PM CDT Office Visit [facility] [address] [place] [address] Hernandez Luevano MD Consult 03/02/2024 Travel from Last 3 Months Social History Tobacco Use Types Packs/Day Years Used Date Smoking Tobacco: Never Smokeless Tobacco: Never Tobacco Cessation:Counseling Given: Yes Alcohol Use Standard Drinks/Week Comments Never 0 (1 standard drink = 0.6 oz pur e alcohol) Social Connections Answer Date Recorded Frequency of Communication with Friends and Fami ly 0 03/02/2024 Financial Resource Strain Answer Date R ecorded Difficulty of Paying Living Expenses 3 03/02/2024 Difficulty of Paying Living Expenses Not on file 03/02/2024 Food Insecurity Answer Date Recorded Worried About Running Out of Food in the Last Ye ar 1 03/02/2024 Transportation Needs Answer Date Record ed Lack of Transportation (Medical) 1 03/02/2024 Housing Stability Answer Date Recorded Unable to Pay for Housing in the Last Year 1 03/02/2024 Sex and Gender Information Value Date Recorded Sex Assigned at Not on file Gender Identity Not on file Sexual Orientation Not on file Obstetrics History Last Filed Vital Signs Vital Sign Reading Time Taken Comments Blood Pressure 130/78 03/02/2024 2:18 PM CDT Pulse 82 03/02/2024 2:18 PM CDT Temperature 36.6 ??C (97.9 ??F) 03/07/2023 1:12 PM CD T Respiratory Rate 14 03/02/2024 2:18 PM CDT Oxygen Saturation 98% 03/07/2023 1:12 PM CDT Inhaled Oxygen Concentration - - Weight 201.4 kg (444 lb) 03/02/2024 2:18 PM CDT Height 188 cm (6' 2) 04/12/2019 8:14 PM TANK RIVETER Body Mass Index - - Plan of Treatment Upcoming Encounters Date Type Department Care Team (Late st Contact Info) Description 03/10/2024 2:00 PM CDT Ancillary Procedure [facility] [address] [place] [address] Health Maintenance Due Date Last Done Comments Tdap 2010 HIV for age 15-65 2014 HPV series for age 9-26 (1 - Male 3-dose series) 2014 BMI (ht and wt on same day) for age 18+ 2017 Hepatitis C screening for age 18-79 2017 Depression screening for age 12+ 07/27/2017 07/27/2016 Tetanus booster 2019 COVID-19 vaccine series ( season) 2024 05/12/2022, 04/30/2021, 09/10/2020, Additional history exists Influenza for age 9-49 01/30/2024 Pneumococcal series for age 6-64 Aged Out No longer eligible based on patient's age to complete this topic Care Teams Doughnut Glazier Relationship Specialty Start Date End Date Pcp, No . PCP - General 04/12/19
[2024-03-10] MEDS: PERFLUTREN LIPID MICROSPHERES 2 ML VIAL IVP (14:35)
== END 2024-03-10 13:52 | disposition home or self-care (01) ==
LOC: RAD 13:51
PROVIDERS: PCP Family Medicine; Visit Provider Family Medicine
DX: I48.91 Unspecified atrial fibrillation (principal)
CPT/HCPCS: 93306; Q9957

== ENCOUNTER 2024-04-04 19:17 | Outpatient (CLI) | payer BC, SELFPAY ==
--- OUTSIDE RECORDS SUMMARY | 2024-04-04 19:19 | XMS_ITS | Encounter Summary ---
Author Organization [facility] Address [address], [place] [address] Care Team Providers Care Roentgenology Teacher Name Role Phone Needs Pcp, Assignment Primary Care Provider [phone] Reason for Visit * Reason Comments Annual Exam Encounter Details Date Type Department Care Team (Late st Contact Info) Description 03/23/2024 2:[address] PM CDT Office Visit [facility] [address] [address] Riddhi Baez, OD [address] [place] [address] Examination of eyes and vision (Primary Dx); Hyperopic astigmatism of both eyes Social History Tobacco Use Types Packs/Day Years Used Date Smoking Tobacco: Never Smokeless Tobacco: Never Alcohol Use Standard Drinks/Week Comments No 0 (1 standard drink = 0.6 oz pur e alcohol) Sex and Gender Information Value Date Recorded Sex Assigned at Not on file Gender Identity Not on file Sexual Orientation Not on file documented as of this encounter Progress Notes * Riddhi Baez, OD - 03/23/2024 2:00 PM CDT Patient is alert and feels well. Medical history, current medications, and allergies reviewed. Routine eye exam. Assessment: ICD-10-CM 1. Examination of eyes and vision Z01.00 2. Hyperopic astigmatism of both eyes H52.203 Plan: 1-2. Discussed findings with patient. Rx given for new glasses if desired. LASIK/Refractive surgerydiscussed. Information about refractive surgery at [facility] given. RTC 1 year or sooner as needed. documented in this encounter Plan of Treatment Not on file documented as of this encounter Visit Diagnoses Diagnosis Examination of eyes and vision- Primary Hyperopic astigmatism of both eyes documented in this encounter Care Teams Roentgenology Teacher Relationship Specialty Start Date End Date Needs Pcp, [place] [address] PCP - General 09/09/16 documented as of this encounter
--- OUTSIDE RECORDS SUMMARY | 2024-04-04 19:19 | XMS_ITS | Clinical Summary ---
Author Organization [facility] Address [address], [place] [address] Care Team Providers Care Mental Health Director Name Role Phone Needs Pcp, Assignment Primary Care Provider [phone] Source Comments You are receiving this document [...] for each transition of care or referral. [employer] Allergies Active Allergy Reactions Criticality Noted Date [...] Overview (01/20/2017): Secondary to influenza. Hospitalized at [facility] (Dr. Galarza). ; History of myocarditis Obesity due to excess calories 02/11/2016 Seasonal allergies 2016 Routine infant or child health check 08/25/2010 Overview (01/20/2017): [facility] Banquet Prep Cook Multisystem Exam 0-17yr Resolved Problems Problem Noted Date Diagnosed Date Resolved Date Concussion without loss of consciousness 02/25/2015 04/24/2015 Asthma 07/08/2010 07/27/2017 Overview (01/20/2017): Asthma NOS Encounters Date Type Department Care Team Description 03/23/2024 2:00 PM CDT Office Visit [facility] [address] [address] Riddhi Baez A, OD Examination of eyes and vision (Primary Dx); Hyperopic astigmatism of both eyes from Last 3 Months Immunizations Name Administration Dates Next Due DTaP [...] T Respiratory Rate 18 07/27/2017 2:52 PM LOCAL DELIVERY DRIVER Oxygen Saturation 98% 02/19/2022 1:03 PM CDT [...] age to complete this topic Care Teams Mental Health Director Relationship Specialty Start Date End Date Needs Pcp, [place], [place] [phone] PCP - General 09/09/16
--- OUTSIDE RECORDS SUMMARY | 2024-04-04 19:19 | XMS_ITS | Encounter Summary ---
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
--- OUTSIDE RECORDS SUMMARY | 2024-04-04 19:19 | XMS_ITS | Encounter Summary ---
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
--- OUTSIDE RECORDS SUMMARY | 2024-04-04 19:19 | XMS_ITS | Clinical Summary ---
Author Organization [facility] Address [place], [place] [address] Care Team Providers Care Section Leader Screen Printing Name Role Phone Pcp, No Primary Care [...] Encounters Date Type Department Care Team Description 03/20/2024 Telephone [facility] [address] [place] [address] [place] [id number] Hernandez Luevano MD Cardiology Appointment 03/10/2024 2:00 PM CDT Ancillary Procedure [facility] & [address] [address] 03/02/2024 2:00 PM CDT Office Visit [facility] [address] [place] [address] Hernandez Luevano MD Consult 03/02/2024 Travel from [...] 188 cm (6' 2) 04/12/2019 8:14 PM GUIDANCE SECRETARY Body Mass Index - - Plan of [...] on patient's age to complete this topic Procedures Procedure Name Priority Date/Time Associated Diagnosis Comments ECHO TTE COMPLETE W CONTRAST Routine 03/10/2024 2:52 PM CDT Unspecified atrial fibrillation (HC) from Last 3 Months Results * ECHO TTE COMPLETE W CONTRAST (03/10/2024 2:52 PM CDT) AORTIC VALVE MEAN PG 4 mmHg EJECTION FRACTION 66 % LVEDD 4.9 cm Anatomical Region Laterality Modality Ultrasound 03/10/2024 2:15 PM CDT Narrative 03/10/2024 3:09 PM CDT ECHOCARDIOGRAM RICCI JAMES ?Accession#: ?? [id number] : ?2000 24 years Study Date: ?? 03/10/2024 2:15:09 PM Gender: M ? BP: ? 126/74 mmHg Height: 188.00 cm ? BSA: ?3.05 m? ? ? Weight: 202.00 kg ? Tech: ? MBF ?Referring MD: RICCI BURNETTE Site: ? [facility] Reading Location: Mobile OP Patient Location: Outpatient. Procedure: 2D w/ Contrast, Color Doppler and Spectral Doppler. Indication for study: Unspecified atrial fibrillation (HC) Cardiac Rhythm: Regular.Study quality: Technically limited. Imaging limitations: This study was subject to imaging limitations due to body habitus. Final Impressions: 1. Technically limited exam. 2. Normal left ventricular size, mildly increased wall thickness, normal global systolic function, calculated EF of 66 %. 3. Right ventricular cavity size is not well visualized, global systolic RV function is not well visualized. 4. Echo contrast was administered to enhance visualization of all left ventricular segments. Comparison There are no prior studies on this patient for comparison purposes. Chamber Sizes and Function Normal left ventricular size, mildly increased wall thickness, normal global systolic function, calculated EF of 66 %. No resting regional wall motion abnormality visualized. Left atrial size is normal. Left atrial pressure is normal. Right ventricular cavity size is not well visualized, global systolic RV function is not well visualized. The right atrium is not well visualized. The pulmonary artery is of normal size and origin. The sinus of Valsalva is normal sized. The ascending aorta is normal sized. Valves, RV Pressures and Diastolic Function The aortic valve is normal in structure and trileaflet, no stenosis and no regurgitation. The mitral valve is normal in structure, no mitral regurgitation. Normal diastolic function. The tricuspid valve is not well visualized. Tricuspid regurgitation is regurgitation is not well visualized. The pulmonic valve is not well visualized. Unable to determine pulmonary regurgitation. Masses, Effusion, Shunts There is no pericardial effusion. The inferior vena cava is normal sized, respiratory size variation greater than 50%. No left to right shunting was detected by limited color flow Doppler interrogation of the interatrial septum. MEASUREMENTS AND CALCULATIONS 2-D Measurements and LV Function: LVID (d) 4.9 cm Planimetered EF 66 % LVID (s) 3.9 cm LV FS% (2D) ? 20 % IVS (d) ??1.2 cm LVOT diameter ?? 2.4 cm LVPW (d) 1.3 cm HR ?75 bpm Ao Sinus 3.4 cm LA Vol index ?18 ml/m2 Asc Ao ?? 3.0 cm Diastology: Mitral ?Tissue Doppler E Peak 0.9 m/s ??e', Septum ? 0.10 m/s A Peak 0.7 m/s ??e', Lateral ?0.11 m/s E/A ?1.3 ?E/e' Average ?? 8.13 DT ? 175 msec Aortic Valve: Vmax ? 1.3 m/s ??KURT (V) ?? 4.42 cm? ? ? VTI ?0.26 m ?? KURT (I) ?? 4.51 cm? ? ? LVOT V max 1.2 m/s ??Max PG ?7 mmHg LVOT VTI ?? 0.25 m ?? Mean PG ?? 4 mmHg SV ? 115 ml ?? Dim Index 0.98 SV index ?? 38 ml/m? ? ? CO ?8.7 l/min ?CI ?2.8 l/min/m? ? ? Mitral Valve: MVA ?4.3 cm? ? ? MV P 1/2 51 msec Contrast documentation: 3 ml diluted Definity, lot #[id number], [facility]# [id number] was administered peripherally to enhance visualization of all left ventricular segments. . This study was interpreted by an [facility] accredited facility. CC: [facility] ([facility]) [facility]. ??Final ?? Procedure Note Mirza Castellanos MD - 03/10/2024 ECHOCARDIOGRAM RICCI JAMES : 2000 24 years Study Date: 03/10/2024 2:15:09 PM Gender: M BP: 126/74 mmHg Height: 188.00 cm BSA: 3.05 m? ? ? Weight: 202.00 kg Tech: ZULMA Referring MD: RICCI BURNETTE Site: [facility] Reading Location: Mobile OP Patient Location: Outpatient. Procedure: 2D w/ Contrast, Color Doppler and Spectral Doppler. Indication for study: Unspecified atrial fibrillation (HC) Cardiac Rhythm: Regular.Study quality: Technically limited. Imaging limitations: This study was subject to imaging limitations due tobody habitus. Final Impressions: 1. Technically limited exam. 2. Normal left ventricular size, mildly increased wall thickness, normalglobal systolic function, calculated EF of 66 %. 3. Right ventricular cavity size is not well visualized, global systolicRV function is not well visualized. 4. Echo contrast was administered to enhance visualization of all leftventricular segments. Comparison There are no prior studies on this patient for comparison purposes. Chamber Sizes and Function Normal left ventricular size, mildly increased wall thickness, normalglobal systolic function, calculated EF of 66 %. No resting regional wallmotion abnormality visualized. Left atrial size is normal. Left atrialpressure is normal. Right ventricular cavity size is not well visualized,global systolic RV function is not well visualized. The right atrium isnot well visualized. The pulmonary artery is of normal size and origin.The sinus of Valsalva is normal sized. The ascending aorta is normalsized. Valves, RV Pressures and Diastolic Function The aortic valve is normal in structure and trileaflet, no stenosis and noregurgitation. The mitral valve is normal in structure, no mitralregurgitation. Normal diastolic function. The tricuspid valve is not wellvisualized. Tricuspid regurgitation is regurgitation is not wellvisualized. The pulmonic valve is not well visualized. Unable to determinepulmonary regurgitation. Masses, Effusion, Shunts There is no pericardial effusion. The inferior vena cava is normal sized,respiratory size variation greater than 50%. No left to right shunting wasdetected by limited color flow Doppler interrogation of the interatrialseptum. MEASUREMENTS AND CALCULATIONS 2-D Measurements and LV Function: LVID (d) 4.9 cm Planimetered EF 66 % LVID (s) 3.9 cm LV FS% (2D) 20 % IVS (d) 1.2 cm LVOT diameter 2.4 cm LVPW (d) 1.3 cm HR 75 bpm Ao Sinus 3.4 cm LA Vol index 18 ml/m2 Asc Ao 3.0 cm Diastology: Mitral Tissue Doppler E Peak 0.9 m/s e', Septum 0.10 m/s A Peak 0.7 m/s e', Lateral 0.11 m/s E/A 1.3 E/e' Average 8.13 DT 175 msec Aortic Valve: Vmax 1.3 m/s KURT (V) 4.42 cm? ? ? VTI 0.26 m KURT (I) 4.51 cm? ? ? LVOT V max 1.2 m/s Max PG 7 mmHg LVOT VTI 0.25 m Mean PG 4 mmHg SV 115 ml Dim Index 0.98 SV index 38 ml/m? ? ? CO 8.7 l/min CI 2.8 l/min/m? ? ? Mitral Valve: MVA 4.3 cm? ? ? MV P 1/2 51 msec Contrast documentation: 3 ml diluted Definity, lot #[id number], [facility]#[id number] was administered peripherally to enhance visualization of allleft ventricular segments. . This study was interpreted by an [facility] accredited facility. CC: [facility] (med records) [facility]. Final Ricci Burnette MD ECHO ORD from Last 3 Months Care Teams Section Leader Screen Printing Relationship Specialty Start Date End Date Pcp, No . PCP - General 04/12/19
--- OUTSIDE RECORDS SUMMARY | 2024-04-04 19:19 | XMS_ITS | Clinical Summary ---
Author Organization [facility] Address [address] [place] [id number] Care Team Providers Care Fruit Stuffer Name Role Phone Clinic, [facility] Primary Care Provider Allergies Active Allergy Reactions Criticality Noted Date Comments Antihistamines, Loratadine-Type Other (See Comments) High 11/21/2020 Arrhythmia, Required Defib, Diphenhydramine Palpitations High 11/27/2020 Racing Heart Loratadine Anaphylaxis High 10/01/2008 (Claritin) Racing heart. Loratadine Palpitations High 08/02/2002 (Claritin) Racing heart. PN: heart races (Claritin) Racing heart. (Claritin) Racing heart. Medications oxyCODONE (ROXICODONE) 5 MG tablet Take 1 tablet (5 mg) by mouth every 6 hours as needed for pain No driving or operating heavy machinery while taking this medication. You may take a stool softener with this medication as it may cause constipation. 8 tablet Active escitalopram (LEXAPRO) 20 MG tablet Take 20 mg by mouth daily Active acetaminophen (TYLENOL) 500 MG tablet Take 500-1,000 mg by mouth every 6 hours as needed for mild pain Active ibuprofen (ADVIL/MOTRIN) 600 MG tabletIndicatio ns:Closed fracture of right ankle, initial encounter Take 1 tablet (600 mg) by mouth every 6 hours as needed for other (mild and/or inflammatory pain) 30 tablet 1 Active acetaminophen (TYLENOL) 325 MG tabletIndicatio ns:Closed fracture of right ankle, initial encounter Take 2 tablets (650 mg) by mouth every 4 hours as needed for mild pain 50 tablet 1 Active senna-docusate (SENOKOT-S/IZZY COLACE) 8.6-50 MG tabletIndicatio ns:Closed fracture of right ankle, initial encounter Take 1-2 tablets by mouth 2 times daily 30 tablet 1 Active ondansetron (ZOFRAN-ODT) 4 MG ODT tabIndications: Closed fracture of right ankle, initial encounter Take 1-2 tablets (4-8 mg) by mouth every 8 hours as needed for nausea 4 tablet 1 Active aspirin (ASA) 81 MG EC tabletIndicatio ns:Closed fracture of right ankle, initial encounter Take 1 tablet (81 mg) by mouth 2 times daily (with meals) 28 tablet 1 Active hydrOXYzine (ATARAX) 25 MG tabletIndicatio ns:Closed fracture of right ankle, initial encounter Take 1 tablet (25 mg) by mouth 3 times daily as needed (muscle spasms and breakthrough pain) 40 tablet 1 Active Active Problems Problem Noted Date Diagnosed [...] on file 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 Gender Identity Not on file Sexual [...] 75+ series) 2074 HEPATITIS B IMMUNIZATION Completed , 04/30/2000, 1999, Additional history exists MENINGITIS IMMUNIZATION [...] this topic Medical Devices Implanted Type Area Suspect Artist Supervisor Device Identifier Shelf Expiration Date Model / Serial / Lot Imp Scr Arthrex Non-Locking Canc Vahe 2.7x20mm Ar-8827-20 - [id number] Implanted:Qty: 1 on 11/27/2020 by Tan Myers MD at [facility] Metallic Hardware/Anc hor Right: Ankle ARTHREX AR-8827-2 8002 [id number] Imp Scr Arthrex Non-Locking Canc Vahe 2.7x24mm Ar-8827-24 - [id number] Implanted:Qty: 1 on 11/27/2020 by Tan Myers MD at [facility] Metallic Hardware/Anc hor Right: Ankle ARTHREX AR-8827-2 8002 [id number] Locking Third Tubular Plate 8 Holes Implanted:Qty: 1 on 11/27/2020 by Tan Myers MD at [facility] Right: Ankle ARTHREX AR-8943T- 8002 [id number] 4mm Cancellous Fully Threaded 16mm Implanted:Qty: 2 on 11/27/2020 by Tan Myers MD at [facility] Right: Ankle ARTHREX AR-8840-1 8002 [id number] 4mm Cancellous Fully Threaded 18mm Implanted:Qty: 1 on 11/27/2020 by Tan Myers MD at [facility] Right: Ankle ARTHREX AR-8840-1 8002 [id number] 3.5mm Cortical Screw 16mm Implanted:Qty: 2 on 11/27/2020 by Tan Myers MD at [facility] Right: Ankle ARTHREX AR-8835-1 8002 [id number] 3.5mm Cortical Screw 20mm Implanted:Qty: 1 on 11/27/2020 by Tan Myers MD at [facility] Right: Ankle ARTHREX AR-8835-2 8002 [id number] Insurance [facility] [employer] Member Subscriber Plan / Payer (Ef fective 2020-Present) Name:Ricci Chris Relation to Subscriber:Employee Name:[facility] Date of :1900 (Home) Address: [address] [place] [address] Payer ID:[id number] Group ID:Not on file Type:Not on file Address: [employer] [address] [place] [address] Care Teams Fruit Stuffer Relationship Specialty Start Date End Date [address] [address] PCP - General 11/21/20
--- OUTSIDE RECORDS SUMMARY | 2024-04-04 19:19 | XMS_ITS | Referral Summary ---
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 Gender Identity Not on file Sexual Orientation [...] on file Medical Devices Implanted Type Area [employer] Device Identifier Shelf Expiration Date Model / Serial / Lot Imp Scr Arthrex Non-Locking Canc Vahe 2.7x20mm Ar-8827-20 - [id number] Implanted:Qty: 1 on 11/27/2020 by Tan Myers MD at [facility] Metallic Hardware/Anc hor Right: Ankle ARTHREX AR-8827-2 [id number] Imp Scr Arthrex Non-Locking Canc Vahe 2.7x24mm Ar-8827-24 - [id number] Implanted:Qty: 1 on 11/27/2020 by Tan Myers MD at [facility] Metallic Hardware/Anc hor Right: Ankle ARTHREX AR-8827-2 [id number] Locking Third Tubular Plate 8 Holes Implanted:Qty: 1 on 11/27/2020 by Tan Myers MD at [facility] Right: Ankle ARTHREX AR-8943T- [id number] 4mm Cancellous Fully Threaded 16mm Implanted:Qty: 2 on 11/27/2020 by Tan Myers MD at [facility] Right: Ankle ARTHREX AR-8840-1 8002 [id number] 4mm Cancellous Fully Threaded 18mm Implanted:Qty: 1 on 11/27/2020 by Tan Myers MD at [facility] Right: Ankle ARTHREX AR-8840-1 8002 [id number] 3.5mm Cortical Screw 16mm Implanted:Qty: 2 on 11/27/2020 by Tan Myers MD at [facility] Right: Ankle ARTHREX AR-8835-1 8002 [id number] 3.5mm Cortical Screw 20mm Implanted:Qty: 1 on 11/27/2020 by Tan Myers MD at [facility] Right: Ankle ARTHREX AR-8835-2 [id number] Insurance [facility] [employer] Care Teams Jv Baseball Coach Relationship Specialty Start Date End Date [facility], [address] [address] PCP - General 11/21/20
--- NOTE | 2024-04-11 12:54 | W.PM.SLEEP ---
Sleep Study Details Details Interpreting Provider: Annabelle Date of Sleep Study: 04/04/24 Sleep Study Details: STUDY TYPE:? Home unattended ? BMI:? 57 ORDERING PROVIDER:Zackary Alanis INDICATION:? Concern about sleep apnea ? SLEEP SUMMARY:? 403 minutes monitored RESPIRATORY SUMMARY:? AHI 8.8, left lateral 7.2, prone 15.2, supine 9.7, right lateral 8.7 Low oxygen 84 5.5% of study oxygen less than 90% Eight snoring 87.4% PERIODIC LIMB MOVEMENTS OF SLEEP:? Not record CARDIAC:? Range 64-114, mean 86.5 IMPRESSION:? Mild obstructive sleep apnea with significant hypo oxygenation RECOMMENDATION: Treatment options include weight loss, dental appliance, CPAP AutoSet, airway expansion surgery.
== END 2024-04-04 19:18 | disposition home or self-care (01) ==
LOC: SLEEP 19:17
PROVIDERS: PCP Family Medicine; Visit Provider Otolaryngology
DX: G47.33 Obstructive sleep apnea (adult) (pediatric) (principal)
CPT/HCPCS: 95806

== ENCOUNTER 2025-02-02 07:47 | Outpatient (CLI) | payer BC, SELFPAY | END 2025-02-02 07:48 | disposition home or self-care (01) | LOC: NFLDREF 02-07 10:22 | PROVIDERS: PCP Family Medicine; Referring Provider Family Medicine; Visit Provider Family Medicine | DX: E78.5 Hyperlipidemia, unspecified (principal); R79.89 Other specified abnormal findings of blood chemistry | CPT/HCPCS: 80053; 80061; 84443 ==